=== PATIENT | female | born 1945 | race Caucasian/White ===

== ENCOUNTER 2021-07-17 17:16 | Inpatient (IN) | payer MEDICARE ==
--- NOTE | 2021-07-17 16:34 | CT ---
EXAMINATION TYPE: CT brain wo/w con DATE OF EXAM: 07/17/2021 COMPARISON: None. HISTORY: Headache Stat hold and call CT DLP: 2276.40 mGycm Automated exposure control for dose reduction was used. CONTRAST: CT scan of the head is performed without and with IV Contrast, patient injected with 100 mL of Isovue 300. FINDINGS: Noncontrast images show no acute intracranial hemorrhage or midline shift. There is mild ve ntricular and sulcal prominence. There is vague area of low attenuation involving the right parietal temporal regions. Finding consistent with age-indeterminate infarct without prior comparison. This me asures approximately 5.6 x 3.2 cm on axial image 28. Postcontrast images show no suspicious enhancing mass. The globes are intact and the visualized sinuses are clear. IMPRESSION: Age-indeterminate right parietal lobe infarct with temporal extension could be subacute i n age. Correlate clinically. Correlation with old outside CT or MRI would be beneficial. No abnormal enhancement noted.
[2021-07-17] MEDS ORDERED: SODIUM CHLORIDE 0.9% 500 ML 500 ML IV STA (17:40)
[2021-07-17 18:08] LABS: Basophils # (A) 0.1 k/uL (0-0.2); Basophils % (A) 1 %; Eosinophils # (A) 0.1 k/uL (0-0.7); Eosinophils % (A) 1 %; HCT 41.6 % (34.0-46.0); HGB 14.3 gm/dL (11.4-16.0); Lymphocytes # (A) 1.8 k/uL (1.0-4.8); Lymphocytes % (A) 22 %; MCHC 34.4 g/dL (31.0-37.0); MCV 92.9 fL (80.0-100.0); Mean Platelet Volume 8.4; Monocytes # (A) 0.4 k/uL (0-1.0); Monocytes % (A) 5 %; Neutrophils # (A) 5.6 k/uL (1.3-7.7); Neutrophils % (A) 68 %; Platelet Count 204 k/uL (150-450); RBC 4.48 m/uL (3.80-5.40); RDW 12.7 % (11.5-15.5); WBC 8.3 k/uL (3.8-10.6)
[2021-07-17 18:20] LABS: Albumin 4.3 g/dL (3.5-5.0); Calcium 9.2 mg/dL (8.4-10.2); Potassium 4.2 mmol/L (3.5-5.1); Total Bilirubin 0.6 mg/dL (0.2-1.3); Total Protein 7.5 g/dL (6.3-8.2)
[2021-07-17 18:23] LABS: INR 0.9 (<1.2); Partial Thromboplastin Time 22.4 sec (22.0-30.0); Prothrombin Time 9.6 sec (9.0-12.0)
[2021-07-17] MEDS ORDERED: amLODIPine 5 MG TAB PO STA (18:35)
--- NOTE | 2021-07-17 18:40 | ED ---
General Adult HPI - General Chief complaint: Neuro Symptoms/Deficit Stated complaint: Abnormal CT Time Seen by Provider: 07/17/21 17:39 Source: patient, RN notes reviewed, old records reviewed Mode of arrival: ambulatory Limitations: no limitations - History of Present Illness Initial comments: 76-year-old female who presented from outpatient CT with abnormal findings. Patient had gone to CT for headache and dizziness which occurred about 4 days prior and is currently resolved. CT showed subacute infarct in the right parietal and temporal lobe. No itch cranial hemorrhage. This was with and without contrast. She has no active headache currently. No numbness or weakness. No chest pain or abdominal pain. No fever. No other complaints. No history of CVA. She is not on any anticoagulation or antiplatelet medication. She is hypotensive upon arrival but has no previous diagnosis of hypertension. She has no complaints. - Related Data Allergies Allergy/AdvReac Type Severity Reaction Status Date / Time No Known Allergies Allergy Verified 07/17/21 17:37 Review of Systems ROS Statement: Those systems with pertinent positive or pertinent negative responses have been documented in the HPI. ROS Other: All systems not noted in ROS Statement are negative. Past Medical History Past Medical History: No Reported History History of Any Multi-Drug Resistant Organisms: None Reported Past Surgical History: No Surgical Hx Reported Past Psychological History: No Psychological Hx Reported Smoking Status: Never smoker Past Alcohol Use History: None Reported Past Drug Use History: None Reported General Exam Limitations: no limitations General appearance: alert, in no apparent distress Head exam: Present: atraumatic, normocephalic Eye exam: Present: normal appearance, PERRL ENT exam: Present: normal exam Neck exam: Present: normal inspection. Absent: tenderness, meningismus Respiratory exam: Present: normal lung sounds bilaterally. Absent: respiratory distress, wheezes Cardiovascular Exam: Present: regular rate, normal rhythm GI/Abdominal exam: Present: soft. Absent: distended, tenderness, guarding Extremities exam: Present: normal inspection, normal capillary refill. Absent: pedal edema Neurological exam: Present: alert, oriented X3, other (NIH of 0, no ataxia, normal finger to nose bilaterally). Absent: CN II-XII intact, motor sensory deficit Psychiatric exam: Present: normal affect, normal mood Skin exam: Present: warm, dry, intact Course Vital Signs 07/17/21 17:32 Temperature 98.5 F Pulse Rate 80 Respiratory 18 Rate Blood Pressure 209/115 O2 Sat by Pulse 97 Oximetry EKG Findings - EKG Comments: EKG Findings:: EKG: Sinus rhythm LVH, rate of 65, no ST segment elevation, AZ interval 197, QRS duration 90, QTC 410 Medical Decision Making - Medical Decision Making 76-year-old female with abnormal outpatient CT, showing subacute stroke. Patient is hypertensive in the emergency department. This is likely secondary to CVA. She has no headache. No focal findings. NIH of 0. She is given an oral antihypertensive medication as well as aspirin in the emergency department. Will allow for permissive hypertension. I had initially order CT angiography however outpatient computed tomography scan was with contrast. Will withhold CT angiography at this point due to recent contrast study. I did order an echo as well as carotid Doppler. I discussed the case with Dr. Klein, who will admit. Patient will require further stroke evaluation. - Lab Data Result diagrams: 07/17/21 18:00 07/17/21 18:00 Lab Results 07/17/21 07/17/21 07/17/21 Range/Units 15:37 18:00 18:00 WBC 8.3 (3.8-10.6) k/uL RBC 4.48 (3.80-5.40) m/uL Hgb 14.3 (11.4-16.0) gm/dL Hct 41.6 (34.0-46.0) % MCV 92.9 (80.0-100.0) fL MCH 32.0 (25.0-35.0) pg MCHC 34.4 (31.0-37.0) g/dL RDW 12.7 (11.5-15.5) % Plt Count 204 (150-450) k/uL MPV 8.4 Neutrophils % 68 % Lymphocytes % 22 % Monocytes % 5 % Eosinophils % 1 % Basophils % 1 % Neutrophils # 5.6 (1.3-7.7) k/uL Lymphocytes # 1.8 (1.0-4.8) k/uL Monocytes # 0.4 (0-1.0) k/uL Eosinophils # 0.1 (0-0.7) k/uL Basophils # 0.1 (0-0.2) k/uL PT 9.6 (9.0-12.0) sec INR 0.9 (<1.2) APTT 22.4 (22.0-30.0) sec Sodium (137-145) mmol/L Potassium (3.5-5.1) mmol/L Chloride (98-107) mmol/L Carbon Dioxide (22-30) mmol/L Anion Gap mmol/L BUN 16 (7-17) mg/dL Creatinine 0.90 (0.52-1.04) mg/dL Est GFR (CKD-EPI)AfAm 73 (>60 ml/min/1.73 sqM) Est GFR (CKD-EPI)NonAf 64 (>60 ml/min/1.73 sqM) Glucose (74-99) mg/dL Calcium (8.4-10.2) mg/dL Total Bilirubin (0.2-1.3) mg/dL AST (14-36) U/L ALT (4-34) U/L Alkaline Phosphatase (38-126) U/L Total Protein (6.3-8.2) g/dL Albumin (3.5-5.0) g/dL 07/17/21 Range/Units 18:00 WBC (3.8-10.6) k/uL RBC (3.80-5.40) m/uL Hgb (11.4-16.0) gm/dL Hct (34.0-46.0) % MCV (80.0-100.0) fL MCH (25.0-35.0) pg MCHC (31.0-37.0) g/dL RDW (11.5-15.5) % Plt Count (150-450) k/uL MPV Neutrophils % % Lymphocytes % % Monocytes % % Eosinophils % % Basophils % % Neutrophils # (1.3-7.7) k/uL Lymphocytes # (1.0-4.8) k/uL Monocytes # (0-1.0) k/uL Eosinophils # (0-0.7) k/uL Basophils # (0-0.2) k/uL PT (9.0-12.0) sec INR (<1.2) APTT (22.0-30.0) sec Sodium 137 (137-145) mmol/L Potassium 4.2 (3.5-5.1) mmol/L Chloride 103 (98-107) mmol/L Carbon Dioxide 27 (22-30) mmol/L Anion Gap 7 mmol/L BUN 14 (7-17) mg/dL Creatinine 0.88 (0.52-1.04) mg/dL Est GFR (CKD-EPI)AfAm 75 (>60 ml/min/1.73 sqM) Est GFR (CKD-EPI)NonAf 65 (>60 ml/min/1.73 sqM) Glucose 114 H (74-99) mg/dL Calcium 9.2 (8.4-10.2) mg/dL Total Bilirubin 0.6 (0.2-1.3) mg/dL AST 20 (14-36) U/L ALT 13 (4-34) U/L Alkaline Phosphatase 119 (38-126) U/L Total Protein 7.5 (6.3-8.2) g/dL Albumin 4.3 (3.5-5.0) g/dL Disposition Clinical Impression: Cerebrovascular accident (CVA), Hypertension Disposition: ADMITTED IP TO THIS [facility] Condition: Stable Is patient prescribed a controlled substance at d/c from ED?: No Referrals: Niyah Thakur MD [Primary Care Provider] - 1-2 days Decision to Admit Reason: Admit from EC Decision Date: 07/17/21 Decision Time: 18:40
[2021-07-17] MEDS: SODIUM CHLORIDE 0.9% 1,000 ML IV SCH (18:53)
[2021-07-17] MEDS: ATORVASTATIN 80 MG TAB PO SCH (18:53)
--- NOTE | 2021-07-17 18:58 | P.HPIM ---
History of Present Illness H&P Date: 07/17/21 Chief Complaint: outpatient CT finding Patient is a 76-year-old female with no significant past medical history that presents to the hospital with outpatient CT findings suggestive of a subacute infarct involving the right parietal and temporal lobe. Patient was examined at bedside with family member denies any new neurologic focal deficit. As per family patient is independent and lives by herself and did not notice any facial droop, dysarthria or any weakness in her lower upper extremity. She has however slightly unsteady when she ambulates as per daughter at bedside. Patient denies any active chest pain, shortness of breath or palpitations. Computed tomography scan showed age intermediate right parietal lobe infarct with Frakes extension could be subacute and age. Neurology will be consult as per ER. Patient's vital signs in the emergency department are as follows blood pressure 209/115, afebrile 98.5 and saturating 97% on room air. CBC and BMP reviewed unremarkable. Past Medical History Past Medical History: No Reported History History of Any Multi-Drug Resistant Organisms: None Reported Past Surgical History: No Surgical Hx Reported Past Psychological History: No Psychological Hx Reported Smoking Status: Never smoker Past Alcohol Use History: None Reported Past Drug Use History: None Reported Medications and Allergies Allergies Allergy/AdvReac Type Severity Reaction Status Date / Time No Known Allergies Allergy Verified 07/17/21 17:37 Physical Exam Vitals: Vital Signs Temp Pulse Resp BP Pulse Ox 07/17/21 17:32 98.5 F 80 18 209/115 97 Intake and Output 07/17/21 07/17/21 07/17/21 06:59 14:59 22:59 Other: Weight 70.307 kg Gen. patient is awake alert oriented 3 Cardio normal S1/S2 heard Respiratory no wheezing or rhonchi appreciated Abdomen soft and nontender Neuro: Cranial nerves II-12 grossly intact 5 out of 5 strength in the upper and lower extremity Normal sensation in the upper and lower extremity Gait was not assessed at bedside due to safety reasons. Results CBC & Chem 7: 07/17/21 18:00 07/17/21 18:00 Labs: Abnormal Lab Results - Last 24 Hours (Table) 07/17/21 Range/Units 18:00 Glucose 114 H (74-99) mg/dL Assessment and Plan Assessment: Assessment: #1 subacute stroke #2 hypertensive emergency Plan: -Admit to medicine for close monitoring -Aspiration/fall precaution -Continue with neuro checks every 4 hours -Outside the window for TPA -Neurology will be consulted -We'll obtain 2-D echocardiogram, lipid profile -Bedside swallow -EKG -PT/OT, speech eval -Continue with aspirin high-intensity statin -Blood pressure goal less than 130/80 however we will titrate slowly -DVT prophylaxis Lovenox 40 daily
[2021-07-17] MEDS ORDERED: LABETALOL 5 MG/ML VIAL MDV IVP PRN (19:00)
--- NOTE | 2021-07-17 19:27 | US ---
EXAMINATION TYPE: US carotid duplex BILAT DATE OF EXAM: 07/17/2021 COMPARISON: NONE CLINICAL HISTORY: Stenosis. EXAM MEASUREMENTS: RIGHT: Peak Systolic Velocity (PSV) cm/sec ----- Right CCA: 71.3 ----- Right ICA: 104.3 ----- Right ECA: 91.1 ICA/CCA ratio: 1.5 RIGHT: End Diastole cm/sec ----- Right CCA: 18.4 ----- Right ICA: 34.2 ----- Right ECA: 11.8 LEFT: Peak Systolic Velocity (PSV) cm/sec ----- Left CCA: 64.7 ----- Left ICA: 93.8 ----- Left ECA: 95.1 ICA/CCA ratio: 1.4 LEFT: End Diastole cm/sec ----- Left CCA: 23.0 ----- Left ICA: 36.9 ----- Left ECA: 21.0 VERTEBRALS (direction of flow): Right Vertebral: Antegrade Left Vertebral: Antegrade Rhythm: Normal Minimal plaque formation seen within the right carotid artery; moderate hard and soft plaque noted wi thin the left carotid artery bulb. IMPRESSION: Less than 50% stenosis of the carotid bifurcation bilaterally. Criteria for Assigning % of Stenosis / Diameter reduction (Estimation based on the indirect measurements of the internal carotid artery velocities (ICA PSV). 1. Normal (no stenosis)=ICA PSV < 125 cm/s: ratio < 2.0: ICA EDV<40 cm/s. 2. Less than 50% stenosis=ICA PSV < 125 cm/s: ratio < 2.0: ICA EDV<40 cm/s. 3. 50 to 69% stenosis=ICA PSV of 125 to 230 cm/s: ration 2.0 ? 4.0: ICA EDV 40-100 cm/s. 4. Greater than 70% stenosis to near occlusion= ICA PSV > 230 cm/s: ratio > 4.0: ICA EDV > 100 cm/s. 5. Near occlusion= ICA PSV velocities may be low or undetectable: variable ratio and ICA EDV. 6. Total occlusion=unable to detect flow.
[2021-07-17 21:28] LABS: T4, Free (Free Thyroxine) 0.88 ng/dL (0.78-2.19)
[2021-07-18] MEDS: SODIUM CHLORIDE 0.9% 1,000 ML IV SCH ×3 (05:54→23:16)
[2021-07-18 06:42] LABS: Basophils # (A) 0.1 k/uL (0-0.2); Basophils % (A) 1 %; Eosinophils # (A) 0.1 k/uL (0-0.7); Eosinophils % (A) 1 %; HCT 38.9 % (34.0-46.0); HGB 13.2 gm/dL (11.4-16.0); Lymphocytes # (A) 1.9 k/uL (1.0-4.8); Lymphocytes % (A) 23 %; MCH 31.6 pg (25.0-35.0); Monocytes # (A) 0.5 k/uL (0-1.0); Monocytes % (A) 5 %; Neutrophils # (A) 5.7 k/uL (1.3-7.7); Neutrophils % (A) 68 %; Platelet Count 199 k/uL (150-450); RBC 4.18 m/uL (3.80-5.40); RDW 12.2 % (11.5-15.5); WBC 8.4 k/uL (3.8-10.6)
[2021-07-18 06:50] LABS: Chol/HDL Ratio 4.13 Ratio; LDL Cholesterol,Calculated 171.8 mg/dL (0.0-131.0)
[2021-07-18 06:57] LABS: African American GFR (CKD) >90 (>60 ml/min/1.73 sqM); Anion Gap 4 mmol/L; Blood Urea Nitrogen 11 mg/dL (7-17); Calcium 8.7 mg/dL (8.4-10.2); Carbon Dioxide 26 mmol/L (22-30); Chloride 106 mmol/L (98-107); Glucose 122 mg/dL (74-99); Non-African American GFR(CKD) 81 (>60 ml/min/1.73 sqM); Potassium 4.1 mmol/L (3.5-5.1); Sodium 136 mmol/L (137-145)
[2021-07-18] MEDS: HEPARIN SODIUM,PORCINE/PF 5,000 UNIT/0.5 ML SYRINGE SQ SCH ×3 (08:59→23:15)
[2021-07-18] MEDS ORDERED: ASPIRIN 325 MG TAB PO SCH (09:00)
--- NOTE | 2021-07-18 10:41 | P.PN ---
Subjective Patient was examined at bedside not accompanying of any new symptomatology. Patient is anxious to be discharged. Pending diagnostic imaging and evaluation by neurology. Objective - Vital Signs Vital signs: Vital Signs Temp 99.3 F 07/18/21 07:47 Pulse 74 07/18/21 08:32 Resp 17 07/18/21 08:32 BP 146/80 07/18/21 07:47 Pulse Ox 94 L 07/18/21 08:01 Intake & Output 07/17/21 07/18/21 07/18/21 18:59 06:59 18:59 Weight 70.307 kg 70.307 kg Other: Voiding Method Toilet Toilet # Voids 1 1 # Bowel Movements 1 - Exam Gen. patient is awake alert oriented 3 Cardio normal S1/S2 heard Respiratory no wheezing or rhonchi appreciated Abdomen soft and nontender Neuro: Cranial nerves II-12 grossly intact 5 out of 5 strength in the upper and lower extremity Normal sensation in the upper and lower extremity Gait was not assessed at bedside due to safety reasons. - Labs CBC & Chem 7: 07/18/21 05:28 07/18/21 05:28 Labs: Abnormal Lab Results - Last 24 Hours (Table) 07/17/21 07/17/21 07/17/21 Range/Units 18:00 18:00 18:58 Sodium (137-145) mmol/L Glucose 114 H (74-99) mg/dL Hemoglobin A1c 6.7 H (0.0-6.0) % Triglycerides 210.00 H (0.00-149.00) mg/dL Cholesterol 282.00 H (0.00-200.00) mg/dL LDL Cholesterol, Calc 171.8 H (0.0-131.0) mg/dL VLDL Cholesterol, Calc 42.00 H (5.00-40.00) mg/dL HDL Cholesterol 68.20 H (40.00-60.00) mg/dL TSH 5.410 H (0.465-4.680) mIU/L 07/18/21 Range/Units 05:28 Sodium 136 L (137-145) mmol/L Glucose 122 H (74-99) mg/dL Hemoglobin A1c (0.0-6.0) % Triglycerides (0.00-149.00) mg/dL Cholesterol (0.00-200.00) mg/dL LDL Cholesterol, Calc (0.0-131.0) mg/dL VLDL Cholesterol, Calc (5.00-40.00) mg/dL HDL Cholesterol (40.00-60.00) mg/dL TSH (0.465-4.680) mIU/L Assessment and Plan Plan: Assessment: #1 subacute stroke #2 essential hypertension Plan: -Admit to medicine for close monitoring -Aspiration/fall precaution -Continue with neuro checks every 4 hours -Outside the window for TPA -Pending evaluation by neurology -Pending 2-D echocardiogram -Start low-dose of Norvasc 2.5 mg daily -PT/OT, speech eval -Continue with aspirin high-intensity statin -Blood pressure goal less than 130/80 however we will titrate slowly -DVT prophylaxis Lovenox 40 daily
--- NOTE | 2021-07-18 15:00 | ECHOF ---
Referral Reason:Thrombus MEASUREMENTS -------- HEIGHT: 170.2 cm WEIGHT: 70.3 kg BP: 129/70 RVIDd: 4.1 cm (< 3.3) IVSd: 1.7 cm (0.6 - 1.1) LVIDd: 3.4 cm (3.9 - 5.3) LVPWd: 1.5 cm (0.6 - 1.1) IVSs: 2.0 cm LVIDs: 2.6 cm LVPWs: 2.0 cm LAESV Index (A-L): 39.00 ml/m Ao Diam: 3.0 cm (2.0 - 3.7) AV Cusp: 2.1 cm (1.5 - 2.6) LA Diam: 3.3 cm (2.7 - 3.8) MV EXCURSION: 18.450 mm (> 18.000) MV EF SLOPE: 88 mm/s (70 - 150) EPSS: 0.3 cm MV E Drake: 0.75 m/s MV DecT: 214 ms MV A Drake: 0.92 m/s MV E/A Ratio: 0.82 RAP: 5.00 mmHg RVSP: 34.95 mmHg FINDINGS -------- Sinus rhythm. This was a technically adequate study. The left ventricular size is normal. There is moderate concentric left ventricular hypertrophy. O verall left ventricular systolic function is normal with, an EF between 55 - 60 %. The right ventricle is moderately enlarged. LA is moderately dilated 34-39 ml/m2 The right atrial size is normal. Interatrial and interventricular septum intact. There is no evidence of aortic regurgitation. There is no evidence of aortic stenosis. Moderate mitral regurgitation is present. [id number] tricuspid regurgitation present. There is borderline pulmonary artery hypertension . The right ventricular systolic pressure, as measured by Doppler, is 34.95mmHg. There is no pulmonic regurgitation present. The aortic root size is normal. IVC Not well visulized. There is no pericardial effusion. CONCLUSIONS -------- 1. The left ventricular size is normal. 2. There is moderate concentric left ventricular hypertrophy. 3. Overall left ventricular systolic function is normal with, an EF between 55 - 60 %. 4. The right ventricle is moderately enlarged. 5. LA is moderately dilated 34-39 ml/m2 6. Moderate mitral regurgitation is present. 7. [id number] tricuspid regurgitation present. 8. There is borderline pulmonary artery hypertension. 9. The right ventricular systolic pressure, as measured by Doppler, is 34.95mmHg. GOVERNOR [employer]SEMBLER: Jacqueline Torres RDCS
--- NOTE | 2021-07-18 16:47 | P.CNNES ---
History of Present Illness Consult date: 07/18/21 Requesting physician: John Brown Reason for Consult: CVA History of Present Illness: Patient is a 76-year-old right-handed female female came to the hospital yesterday at 5:16 PM referred from radiology department after patient had a computed tomography scan of the head outpatient showed a subacute stroke. Patient states that 3 days prior to arrival, she has been feeling lightheaded, slightly off balance but no vertigo. She felt she was coming up with the pneumonia. She saw her primary physician in [place] yesterday, who scheduled computed tomography scan of the head, which was done yesterday, showing subacute stroke as mentioned below. Patient was sent to the ER for evaluation. Patient denies any numbness tingling focal weakness slurred speech or facial droop. Denies any headache. Patient states that all her life she used to speak slowly, but nothing changed. Denies any drooling. Vital signs on arrival blood pressure 209/115, temperature 98.5, pulse rate 80 respiration 18. Saturation 97% patient's blood pressure did improve to 129/70 and 146/80 subsequently. Patient's blood test shows normal CBC PT/PTT, normal chem 20. CT head with and without contrast revealed age indeterminate right parietal lobe infarct with temporal extension could be subacute in age. Correlate clinically. Correlation with old outside CT or MRI would be beneficial. No abnormal enhancement noted. I personally reviewed computed tomography scan of the head and agree with the findings. It appears subacute stroke. Patient only takes multivitamins. Patient does not take any antiplatelet medication at home. She takes Advil sometimes. Denies diabetes, she does have hypertension. No previous history of strokes TIA. She has never smoked does not drink alcohol. Review of Systems As above in detail. All other review systems reviewed and unremarkable. No chest pain, abdominal pain nausea vomiting diarrhea. No fever or chills. Past Medical History Past Medical History: No Reported History History of Any Multi-Drug Resistant Organisms: None Reported Past Surgical History: No Surgical Hx Reported Past Psychological History: No Psychological Hx Reported Smoking Status: Never smoker Past Alcohol Use History: None Reported Past Drug Use History: None Reported Medications and Allergies Home Medications Medication Instructions Recorded Confirmed Type Multivitamins, Thera [Multivitamin 1 tab PO DAILY 07/17/21 07/17/21 History (formulary)] Allergies Allergy/AdvReac Type Severity Reaction Status Date / Time No Known Allergies Allergy Verified 07/17/21 19:35 Physical Examination - Vital Signs Vital Signs: Vital Signs Temp Pulse Pulse Resp BP BP Pulse Ox 07/18/21 08:32 74 17 07/18/21 08:01 94 L 07/18/21 07:47 99.3 F 74 17 146/80 93 L 07/18/21 03:50 98.8 F 74 16 129/70 93 L 07/18/21 00:25 146/72 07/17/21 23:43 98.6 F 68 16 180/106 95 07/17/21 23:27 80 15 156/91 98 07/17/21 22:57 68 18 166/107 95 07/17/21 21:17 64 18 172/90 95 07/17/21 19:09 68 18 188/105 98 07/17/21 18:50 200/108 07/17/21 17:32 98.5 F 80 18 209/115 97 Intake and Output 07/17/21 07/18/21 07/18/21 22:59 06:59 14:59 Other: Voiding Method Toilet Toilet # Voids 1 1 # Bowel Movements 1 Weight 70.307 kg 70.307 kg Patient is an elderly female, in no acute distress. Patient is alert awake oriented to time place and person. She knows it is July in the year is 2021 and that she is in [facility] in [place] in [facility] and name of the current president. Speech and language functions are normal. Patient can name and repeat very well. She has mild nasal tone to her voice, and some slurring, which is likely baseline. Attention, concentration and fund of knowledge is adequate. On cranial examination, pupils are round and reacting to light, visual white revealed left homonymous hemianopia, her extraocular muscles are intact with no nystagmus. Face is symmetric, tongue protrudes to the midline. Palatal elevation and sensation normal, hearing is slightly decreased and shoulder shrug normal, facial sensation normal. Patient has a fairly large size blackhead/mole over the right cheek, which is concerning for basal cell carcinoma. On muscle strength testing, there is no pronator drift and the strength is normal in arms and legs distally and proximally. Deep tendon reflexes are 1+ and symmetric and plantars downgoing. Sensory to touch is equal with no neglect. Cerebellar function showed no ataxia for yczvkh-[id number] testing. No dysdiadochokinesia. Tone and bulk of muscles normal. Gait deferred. On general examination, there is no carotid bruit or murmur, S1-S2 audible. Abdomen is soft nontender. No organomegaly. Bowel sounds present. Chest is clear. Peripheral pulses are present. No edema. Results - Laboratory Findings CBC and BMP: 07/18/21 05:28 07/18/21 05:28 Abnormal Lab Findings: Abnormal Labs 07/17/21 07/17/21 07/17/21 18:00 18:00 18:58 Sodium Glucose 114 H Hemoglobin A1c 6.7 H Triglycerides 210.00 H Cholesterol 282.00 H LDL Cholesterol, Calc 171.8 H VLDL Cholesterol, Calc 42.00 H HDL Cholesterol 68.20 H TSH 5.410 H 07/18/21 05:28 Sodium 136 L Glucose 122 H Hemoglobin A1c Triglycerides Cholesterol LDL Cholesterol, Calc VLDL Cholesterol, Calc HDL Cholesterol TSH Assessment and Plan Assessment: * Subacute ischemic stroke involving the right parietal lobe with temporal extension. * Hypertension, uncontrolled * Hyperlipidemia Plan: * Patient's stroke is likely due to multiple vascular risk factors including uncontrolled hypertension, hyperlipidemia. Patient was not taking any antiplatelet medication. * We will place patient on dual antiplatelet medication, aspirin 81 mg and Plavix 75 mg daily for 21 days, thereafter stop Plavix and continue aspirin 81 mg indefinitely. * Lipid panel with cholesterol 282, LDL 171, HDL 68.2 and triglycerides 210. Agree with starting Lipitor 80 mg daily. * Hemoglobin A1c 6.7. Need dietary modifications, healthy lifestyles and aerobic exercises, and follow-up A1c in 3-6 months. * Carotid Doppler revealed less than 50% stenosis of the carotid bifurcation. Antegrade flow in both vertebral arteries. * 2-D echo revealed normal left ventricular size. Moderate concentric LVH. EF is between 55-60%. Right ventricle is moderately enlarged. Left atrium is moderately dilated, moderate MR, mild to moderate TR. * MRI of the brain was recommended, but patient declined. She understands the risks. (MRIs also very backed up with long delays, as MRI machine was not work ing yesterday from 2 PM onwards) * Optimize control of blood pressure as per IM. Target <140/80, but avoid hypotension. * Recommend no driving, because of visual field deficits, until cleared by ophthalmology. Follow-up with ophthalmology as outpatient. * Telemetric monitoring so far showing sinus rhythm, no other arrhythmia. * Recommend follow-up with neurologist within 2-4 weeks. Thank you for the consult.
[2021-07-18] MEDS: CLOPIDOGREL 75 MG TAB PO SCH (18:08)
[2021-07-18 19:15] LABS: Chol/HDL Ratio 4.28 Ratio; LDL Cholesterol,Calculated 159.9 mg/dL (0.0-131.0)
[2021-07-18] MEDS: ATORVASTATIN 80 MG TAB PO SCH (19:40)
[2021-07-19 04:17] VITALS: RESP 16; TEMP 98.7
[2021-07-19] MEDS: HEPARIN SODIUM,PORCINE/PF 5,000 UNIT/0.5 ML SYRINGE SQ SCH (08:29)
[2021-07-19] MEDS: CLOPIDOGREL 75 MG TAB PO SCH (08:29)
[2021-07-19] MEDS: SODIUM CHLORIDE 0.9% 1,000 ML IV SCH (08:30)
[2021-07-19 08:33] VITALS: BP 165/74; PULSE 78
[2021-07-19] MEDS ORDERED: amLODIPine 2.5 MG TAB PO SCH (09:00)
[2021-07-19] MEDS ORDERED: ASPIRIN 81 MG PO SCH (09:00)
[2021-07-19] MEDS ORDERED: amLODIPine 5 MG TAB PO SCH (09:00)
--- NOTE | 2021-07-19 13:36 | P.DS ---
Providers Date of admission: 07/17/21 18:33 Attending physician: Delonte Klein MD Consults: 07/17/21 18:34 Consult Physician Routine Consulting Provider: Enid Mancia Consult Reason/Comments: CVA Do you want consulting provider notified?: Yes Primary care physician: Niyah Thakur MD Hospital Course: Patient is a 76-year-old female with no significant past medical history that presents to the hospital with outpatient CT findings suggestive of a subacute infarct involving the right parietal and temporal lobe. Patient was examined at bedside with family member denies any new neurologic focal deficit. As per family patient is independent and lives by herself and did not notice any facial droop, dysarthria or any weakness in her lower upper extremity. She has however slightly unsteady when she ambulates as per daughter at bedside. Patient denies any active chest pain, shortness of breath or palpitations. Computed tomography scan showed age intermediate right parietal lobe infarct with [place] extension could be subacute and age. Neurology will be consult as per ER. Patient's vital signs in the emergency department are as follows blood pressure 209/115, afebrile 98.5 and saturating 97% on room air. CBC and BMP reviewed unremarkable. Patient was asked to complete MRI however declined. Did echo cardiogram was completed for many shunt. Patient will be optimized on appropriate blood pressure medication currently on Norvasc which has been increased to 5 mg daily. She has been asked to follow up with primary care doctor to titrate accordingly. We have also started on aspirin and Plavix 75 mg to complete for 21 days and thereafter stopped Plavix and continue aspirin daily. Patient's hemoglobin A1c was also 6.7 we'll initiate metformin 500 mg daily and a. To follow up with neurology within 1-2 weeks of discharge. She is also instructed not to drive by neurology given visual field defects until cleared by ophthalmology. Patient Condition at Discharge: Stable Plan - Discharge Summary Discharge Rx Participant: No New Discharge Prescriptions: New Aspirin 81 mg PO DAILY 30 Days #30 Atorvastatin [Lipitor] 80 mg PO HS 30 Days #30 tab amLODIPine [Norvasc] 10 mg PO DAILY 30 Days #30 tab Clopidogrel [Plavix] 75 mg PO DAILY 21 Days #21 tab Continue Multivitamins, Thera [Multivitamin (formulary)] 1 tab PO DAILY Discharge Medication List Multivitamins, Thera [Multivitamin (formulary)] 1 tab PO DAILY 07/17/21 [History] Aspirin 81 mg PO DAILY 30 Days #30 07/19/21 [Rx] Atorvastatin [Lipitor] 80 mg PO HS 30 Days #30 tab 07/19/21 [Rx] Clopidogrel [Plavix] 75 mg PO DAILY 21 Days #21 tab 07/19/21 [Rx] amLODIPine [Norvasc] 10 mg PO DAILY 30 Days #30 tab 07/19/21 [Rx] Follow up Appointment(s)/Referral(s): [facility], [NON-STAFF] - Niyah Thakur MD [Primary Care Provider] - 1-2 days Enid Mancia MD [STAFF PHYSICIAN] - 1 Week Discharge Disposition: HOME SELF-CARE
--- NOTE | 2021-07-23 11:27 | P.PN ---
Subjective Progress Note Date: 07/19/21 Patient was seen for follow-up. Patient is sitting comfortably in the recliner. Patient denies any new focal symptoms. Patient denies any headache. Telemetric monitoring showing sinus rhythm. Objective - Vital Signs Vital signs: Vital Signs Temp 98.7 F 07/19/21 03:30 Pulse 78 07/19/21 08:00 Resp 16 07/19/21 08:00 BP 165/74 07/19/21 08:00 Pulse Ox 97 07/19/21 08:00 Intake & Output 07/18/21 07/19/21 07/19/21 18:59 06:59 18:59 Intake Total 360 120 Output Total 0 Balance 360 120 Intake: Oral 360 120 Output: Urine 0 Stool 0 Urine/Stool Mix 0 Emesis 0 Other: Voiding Method Toilet Toilet Toilet # Voids 1 1 1 # Bowel Movements 1 1 - Exam Patient's examination is normal except for left homonymous hemianopia. Rest of the examination nonfocal. 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 * Hyperlipidemia Plan: * Patient's stroke is likely due to multiple vascular risk factors including uncontrolled hypertension, hyperlipidemia. Patient was not taking any antiplatelet medication. * Continue dual antiplatelet medication, aspirin 81 mg and Plavix 75 mg daily for 21 days, thereafter stop Plavix and continue aspirin 81 mg indefinitely. * Lipid panel with cholesterol 282, LDL 171, HDL 68.2 and triglycerides 210. Agree with starting Lipitor 80 mg daily. * Hemoglobin A1c 6.7. Need dietary modifications, healthy lifestyles and aerobic exercises, and follow-up A1c in 3-6 months. * Carotid Doppler revealed less than 50% stenosis of the carotid bifurcation. Antegrade flow in both vertebral arteries. * 2-D echo revealed normal left ventricular size. Moderate concentric LVH. EF is between 55-60%. Right ventricle is moderately enlarged. Left atrium is moderately dilated, moderate MR, mild to moderate TR. * MRI of the brain was recommended, but patient declined. * Optimize control of blood pressure as per IM. Target <140/80, but avoid hypotension. * Recommend no driving, because of visual field deficits, until cleared by ophthalmology. Follow-up with ophthalmology as outpatient. * Patient recommended to follow up with with a clockmaker regarding right cheek mole. * Telemetric monitoring so far showing sinus rhythm, no other arrhythmia. * Recommend follow-up with neurologist within 2-4 weeks.
== END 2021-07-19 16:24 | disposition home or self-care (01) | DRG 65 ==
LOC: EC 17:16 → 3SCARD 18:33
PROVIDERS: ADMIT Internal Medicine; ATTEND Internal Medicine
DX: I63.9 Cerebral infarction, unspecified (principal); I16.1 Hypertensive emergency; I10 Essential (primary) hypertension; I08.1 Rheumatic disorders of both mitral and tricuspid valves; R29.810 Facial weakness; H53.40 Unspecified visual field defects; E78.5 Hyperlipidemia, unspecified; R29.700 NIHSS score 0; Z79.82 Long term (current) use of aspirin; R73.9 Hyperglycemia, unspecified; Z79.899 Other long term (current) drug therapy; Z60.2 Problems related to living alone; Z20.822 Contact with and (suspected) exposure to COVID-19; R73.09 Other abnormal glucose
CPT/HCPCS: 36415; 70470; 80048; 80053; 80061; 82565; 83036; 84439; 84443; 84520; 85025; 85610; 85730; 87635; 93005; 93306; 93880; 94760; 99285

== ENCOUNTER 2022-02-15 12:47 | Emergency (ER) | payer MEDICARE ==
[2022-02-15 15:01] LABS: Basophils # (A) 0.1 k/uL (0-0.2); Basophils % (A) 1 %; Eosinophils # (A) 0.1 k/uL (0-0.7); Eosinophils % (A) 2 %; HCT 41.3 % (34.0-46.0); HGB 13.9 gm/dL (11.4-16.0); Lymphocytes # (A) 1.8 k/uL (1.0-4.8); Lymphocytes % (A) 21 %; MCH 31.4 pg (25.0-35.0); MCHC 33.5 g/dL (31.0-37.0); MCV 93.6 fL (80.0-100.0); Mean Platelet Volume 8.5; Monocytes # (A) 0.4 k/uL (0-1.0); Monocytes % (A) 5 %; Neutrophils # (A) 6.2 k/uL (1.3-7.7); Neutrophils % (A) 70 %; Platelet Count 242 k/uL (150-450); RBC 4.41 m/uL (3.80-5.40); RDW 13.3 % (11.5-15.5); WBC 8.9 k/uL (3.8-10.6)
[2022-02-15 15:09] LABS: INR 0.9 (<1.2); Partial Thromboplastin Time 23.2 sec (22.0-30.0); Prothrombin Time 9.6 sec (9.0-12.0)
[2022-02-15 15:12] LABS: Albumin 4.8 g/dL (3.5-5.0); Calcium 9.8 mg/dL (8.4-10.2); Potassium 3.9 mmol/L (3.5-5.1); Total Bilirubin 0.6 mg/dL (0.2-1.3)
--- NOTE | 2022-02-15 15:34 | ED ---
General Adult HPI - General Chief complaint: Recheck/Abnormal Lab/Rx Stated complaint: blood work off dr sent to er labs Time Seen by Provider: 02/15/22 15:20 Source: patient Mode of arrival: ambulatory Limitations: no limitations - History of Present Illness Initial comments: Dictation was produced using [employer] dictation software. please excuse any grammatical, word or spelling errors. Chief Complaint: 76-year-old female past medical history of hypertension presents to the emergency department for abnormal outpatient lab History of Present Illness: Patient is a 76-year-old female she was seen by a medical provider yesterday at the clinic. She was therefore a routine visit. She has no complaints. She had no complaints during that visit. She had routine labs drawn at the office yesterday. Family members received a call told son at the bedside that patient should go to the emergency department for some sort of abnormality. Some of the bedside not sure what the abnormality was. Patient has a complaint at this time. She is feeling at baseline. The ROS documented in this emergency department record has been reviewed and confirmed by me. Those systems with pertinent positive or negative responses have been documented in the HPI. All other systems are other negative and/or noncontributory. PHYSICAL EXAM: General Impression: Alert and oriented x3, not in acute distress HEENT: Normocephalic atraumatic, extra-ocular movements intact, pupils equal and reactive to light bilaterally, mucous membranes moist. Cardiovascular: Heart regular rate and rhythm Chest: Able to complete full sentences, no retractions, no tachypnea Abdomen: abdomen soft, non-tender, non-distended, no organomegaly Musculoskeletal: Pulses present and equal in all extremities, no peripheral edema Motor: no focal deficits noted Neurological: CN II-XII grossly intact, no focal motor or sensory deficits noted Skin: Intact with no visualized rashes Psych: Normal affect and mood ED course: 76-year-old female presents with unknown abnormal outpatient lab. Our electronic medical record does not show any labs drawn recently. Vital s igns upon arrival are within acceptable limits. Patient has no complaints she is well-appearing at the bedside. Physical examination is unremarkable. Blood work is unremarkable. CBC metabolic panel and electrolytes are negative. Troponin is negative. We did speak with primary care physician's office. They did look a patient's labs that she had a proBNP 1191. They told her to come to the ER for concerns of heart failure. Patient also likely has new-onset diabetes. Patient observed in the emergency department for approximately 3 hours. Patient not having any shortness of breath whatsoever. Patient denies ever having had any shortness of breath recently. Patient does not have any clinically significant heart failure. Patient be discharged and advised follow-up with primary care doctor. - Related Data Home Medications Medication Instructions Recorded Confirmed Multivitamins, Thera [Multivitamin 1 tab PO DAILY 07/17/21 07/17/21 (formulary)] Previous Rx's Medication Instructions Recorded Aspirin 81 mg PO DAILY 30 Days #30 07/19/21 Atorvastatin [Lipitor] 80 mg PO HS 30 Days #30 tab 07/19/21 Clopidogrel [Plavix] 75 mg PO DAILY 21 Days #21 tab 07/19/21 amLODIPine [Norvasc] 10 mg PO DAILY 30 Days #30 tab 07/19/21 Allergies Allergy/AdvReac Type Severity Reaction Status Date / Time No Known Allergies Allergy Verified 02/15/22 13:11 Review of Systems ROS Statement: Those systems with pertinent positive or pertinent negative responses have been documented in the HPI. ROS Other: All systems not noted in ROS Statement are negative. Past Medical History Past Medical History: Hypertension History of Any Multi-Drug Resistant Organisms: None Reported Past Surgical History: No Surgical Hx Reported Past Psychological History: No Psychological Hx Reported Smoking Status: Never smoker Past Alcohol Use History: None Reported Past Drug Use History: None Reported General Exam Limitations: no limitations Course Vital Signs 02/15/22 13:09 Temperature 98.5 F Pulse Rate 115 H Respiratory 20 Rate Blood Pressure 130/69 O2 Sat by Pulse 96 Oximetry Medical Decision Making - Lab Data Result diagrams: 02/15/22 14:28 02/15/22 14:28 Lab Results 02/15/22 02/15/22 02/15/22 Range/Units 14:28 14:28 14:28 WBC 8.9 (3.8-10.6) k/uL RBC 4.41 (3.80-5.40) m/uL Hgb 13.9 (11.4-16.0) gm/dL Hct 41.3 (34.0-46.0) % MCV 93.6 (80.0-100.0) fL MCH 31.4 (25.0-35.0) pg MCHC 33.5 (31.0-37.0) g/dL RDW 13.3 (11.5-15.5) % Plt Count 242 (150-450) k/uL MPV 8.5 Neutrophils % 70 % Lymphocytes % 21 % Monocytes % 5 % Eosinophils % 2 % Basophils % 1 % Neutrophils # 6.2 (1.3-7.7) k/uL Lymphocytes # 1.8 (1.0-4.8) k/uL Monocytes # 0.4 (0-1.0) k/uL Eosinophils # 0.1 (0-0.7) k/uL Basophils # 0.1 (0-0.2) k/uL PT 9.6 (9.0-12.0) sec INR 0.9 (<1.2) APTT 23.2 (22.0-30.0) sec Sodium 141 (137-145) mmol/L Potassium 3.9 (3.5-5.1) mmol/L Chloride 102 (98-107) mmol/L Carbon Dioxide 26 (22-30) mmol/L Anion Gap 13 mmol/L BUN 17 (7-17) mg/dL Creatinine 0.85 (0.52-1.04) mg/dL Est GFR (CKD-EPI)AfAm 78 (>60 ml/min/1.73 sqM) Est GFR (CKD-EPI)NonAf 68 (>60 ml/min/1.73 sqM) Glucose 122 H (74-99) mg/dL Calcium 9.8 (8.4-10.2) mg/dL Total Bilirubin 0.6 (0.2-1.3) mg/dL AST 28 (14-36) U/L ALT 22 (4-34) U/L Alkaline Phosphatase 165 H (38-126) U/L Troponin I (0.000-0.034) ng/mL Total Protein 8.0 (6.3-8.2) g/dL Albumin 4.8 (3.5-5.0) g/dL 02/15/22 Range/Units 14:28 WBC (3.8-10.6) k/uL RBC (3.80-5.40) m/uL Hgb (11.4-16.0) gm/dL Hct (34.0-46.0) % MCV (80.0-100.0) fL MCH (25.0-35.0) pg MCHC (31.0-37.0) g/dL RDW (11.5-15.5) % Plt Count (150-450) k/uL MPV Neutrophils % % Lymphocytes % % Monocytes % % Eosinophils % % Basophils % % Neutrophils # (1.3-7.7) k/uL Lymphocytes # (1.0-4.8) k/uL Monocytes # (0-1.0) k/uL Eosinophils # (0-0.7) k/uL Basophils # (0-0.2) k/uL PT (9.0-12.0) sec INR (<1.2) APTT (22.0-30.0) sec Sodium (137-145) mmol/L Potassium (3.5-5.1) mmol/L Chloride (98-107) mmol/L Carbon Dioxide (22-30) mmol/L Anion Gap mmol/L BUN (7-17) mg/dL Creatinine (0.52-1.04) mg/dL Est GFR (CKD-EPI)AfAm (>60 ml/min/1.73 sqM) Est GFR (CKD-EPI)NonAf (>60 ml/min/1.73 sqM) Glucose (74-99) mg/dL Calcium (8.4-10.2) mg/dL Total Bilirubin (0.2-1.3) mg/dL AST (14-36) U/L ALT (4-34) U/L Alkaline Phosphatase (38-126) U/L Troponin I <0.012 (0.000-0.034) ng/mL Total Protein (6.3-8.2) g/dL Albumin (3.5-5.0) g/dL Disposition Clinical Impression: Abnormal laboratory test Disposition: HOME SELF-CARE Condition: Good Is patient prescribed a controlled substance at d/c from ED?: No Referrals: Jose Hammer MD [Primary Care Provider] - 1-2 days Time of Disposition: 15:50
[2022-02-15 16:11] VITALS: BP 132/70; PULSE 90; RESP 18; TEMP 98.2
== END 2022-02-15 16:10 | disposition home or self-care (01) ==
LOC: EC 12:47
DX: R79.89 Other specified abnormal findings of blood chemistry (principal); I10 Essential (primary) hypertension
CPT/HCPCS: 36415; 80053; 84484; 85025; 85610; 85730; 99283

== ENCOUNTER 2024-09-23 15:31 | Inpatient (IN) | payer MEDICARE ==
[2024-09-23] MEDS ORDERED: HEPARIN SODIUM 1,000 UN/ML (10ML VL) IV PRN (16:07)
--- NOTE | 2024-09-23 16:11 | ED ---
General Adult HPI - General Chief complaint: Chest Pain Stated complaint: cardiac issue Time Seen by Provider: 09/23/24 15:40 Source: patient, family Mode of arrival: ambulatory Limitations: no limitations - History of Present Illness Initial comments: Dictation was produced using [email or web address] dictation software. please excuse any grammatical, word or spelling errors. Chief Complaint: 79-year-old female sent in from primary care physician's office for new onset A-fib History of Present Illness: Patient 79-year-old female she went for her 6-month follow-up visit. She was found to be in A-fib. Patient denies any complaints states that she was instructed come to the hospital to be admitted with cardiology consultation and further care. The ROS documented in this emergency department record has been reviewed and confirmed by me. Those systems with pertinent positive or negative responses have been documented in the HPI. All other systems are other negative and/or noncontributory. - Related Data Home Medications Medication Instructions Recorded Confirmed Alendronate Sodium [Fosamax] 70 mg PO FR 09/23/24 09/23/24 Multivit-Min/Iron/Folic/Lutein 1 tab PO DAILY 09/23/24 09/23/24 [Centrum Silver Women Tablet] metFORMIN HCL 500 mg PO BID 09/23/24 09/23/24 Previous Rx's Medication Instructions Recorded Aspirin 81 mg PO DAILY 30 Days #30 07/19/21 Atorvastatin [Lipitor] 80 mg PO HS 30 Days #30 tab 07/19/21 amLODIPine [Norvasc] 10 mg PO DAILY 30 Days #30 tab 07/19/21 Allergies Allergy/AdvReac Type Severity Reaction Status Date / Time No Known Allergies Allergy Verified 09/23/24 16:15 Review of Systems ROS Statement: Those systems with pertinent positive or pertinent negative responses have been documented in the HPI. ROS Other: All systems not noted in ROS Statement are negative. Past Medical History Past Medical History: Hypertension History of Any Multi-Drug Resistant Organisms: None Reported Past Surgical History: No Surgical Hx Reported Past Psychological History: No Psychological Hx Reported Smoking Status: Never smoker Past Alcohol Use History: None Reported Past Drug Use History: None Reported General Exam - General Exam Comments Initial Comments: PHYSICAL EXAM: General Impression: Alert and oriented x3, not in acute distress HEENT: Normocephalic atraumatic, extra-ocular movements intact, pupils equal and reactive to light bilaterally, mucous membranes moist. Cardiovascular: Irregularly irregular Chest: Able to complete full sentences, no retractions, no tachypnea Abdomen: abdomen soft, non-tender, non-distended, no organomegaly Musculoskeletal: Pulses present and equal in all extremities, no peripheral edema Motor: no focal deficits noted Neurological: CN II-XII grossly intact, no focal motor or sensory deficits noted Skin: Intact with no visualized rashes Psych: Normal affect and mood Limitations: no limitations Course Vital Signs 09/23/24 09/23/24 15:32 15:49 Temperature 97.9 F Pulse Rate 121 H 98 Respiratory 19 18 Rate Blood Pressure 126/86 O2 Sat by Pulse 97 Oximetry EKG Findings - EKG Comments: EKG Findings:: My EKG interpretation: Ventricular rate 112, A-fib with RVR, QRS 90, QTc 376. No QTC prolongation, no ST or T-wave changes noted. Medical Decision Making - Medical Decision Making Was pt. sent in by a medical professional or institution (, PA, [employer], urgent care, hospital, or correction...) When possible be specific @ -Sent in by "Dr. De Oliveira" from the clinic Did you speak to anyone other than the patient for history (EMS, parent, family, police, friend...)? What history was obtained from this source @ -No Did you review nursing and triage notes (agree or disagree)? Why? @ -I reviewed and agree with nursing and triage notes Were old charts reviewed (outside hosp., previous admission, EMS record, old EKG, old radiological studies, urgent care reports/EKG's, correction records)? Report findings @ -No old charts were reviewed Differential Diagnosis (chest pain, altered mental status, abdominal pain women, abdominal pain men, vaginal bleeding, musculoskeletal, weakness, fever, dyspnea, syncope, headache, dizziness, GI bleed, back pain, seizure, CVA, palpatations, mental health)? @ - Differential Palpitations: Ventricular arrhythmias, atrial arrhythmias, myocardial infarction, anemia, thyrotoxicosis, electrolyte imbalance, hypokalemia, pulmonary embolism, pulmonary disease, drugs, alcohol, anxiety, stress.... This is not meant to be an all-inclusive list. EKG interpreted by me (3pts min.). @ -See above X-rays interpreted by me (1pt min.). @ -Chest x-ray is nonacute CT interpreted by me (1pt min.). @ -None done U/S interpreted by me (1pt. min.). @ -None done What testing was considered but not performed or refused? (CT, X-rays, U/S, labs)? Why? @ -None What meds were considered but not given or refused? Why? @ -None Was smoking cessation discussed for >3mins.? @ -No Were there social determinants of health that impacted care today? How? (Homelessness, low income, unemployed, alcoholism, drug addiction, transportation, low edu. Level, literacy, decrease access to med. care, group home, rehab)? @ -No Was there de-escalation of care discussed even if they declined (Discuss DNR or withdrawal of care, Hospice)? DNR status @ -No What co-morbidities impacted this encounter? (DM, HTN, Smoking, COPD, CAD, Cancer, CVA, ARF, Chemo, Hep., AIDS, mental health diagnosis, sleep apnea, morbid obesity)? @ -None Was patient admitted / discharged? Hospital course, mention meds given and route, prescriptions, significant lab abnormalities, going to OR and other pertinent info. @ -79-year-old female presents with new onset A-fib. Patient had slight RVR started on Cardizem. Patient started heparin. Patient otherwise well-appearing no acute distress. Labs are within acceptable limits. Patient be admitted cardiology consultation. Case discussed with hospitalist for admission Did you discuss the management of the patient with other professionals (professionals i.e. , PA, [employer], lab, RT, psych nurse, social service worker, plate washer, teacher, purchasing officer, bilingual patient support caseworker)? Give summary @ -No Was critical care preformed (if so, how long)? @ -Yes, 33 minutes for management of rapid ventricular rate Undiagnosed new problem with uncertain prognosis? @ -No Drug Therapy requiring intensive monitoring for toxicity (Heparin, Nitro, Insulin, Cardizem)? @ -No Were any procedures done? @ -No Diagnosis/symptom? Acute, or Chronic, or Acute on Chronic? Uncomplicated (wit hout systemic symptoms) or Complicated (systemic symptoms)? @ -New onset A-fib Side effects of treatment? @ -No Exacerbation, Progression, or Severe Exacerbation? @ -No Poses a threat to life or bodily function? How? (Chest pain, [place], [place], pneumonia, PE, COPD, DKA, ARF, appy, cholecystitis, CVA, Diverticulitis, Homicidal, Suicidal, threat to staff... and all critical care pts) @ -yes - Lab Data Result diagrams: 09/23/24 16:06 09/23/24 16:06 Lab Results 09/23/24 09/23/24 09/23/24 Range/Units 16:06 16:06 16:06 WBC 7.96 (4.50-10.00) 10*3/uL RBC 4.60 (4.10-5.20) 10*6/uL Hgb 14.6 (12.0-15.0) g/dL Hct 42.7 (37.2-46.3) % MCV 92.8 (80.0-97.0) fL MCH 31.7 (27.0-32.0) pg MCHC 34.2 (32.0-37.0) g/dL Plt Count 196 (140-440) 10*3/uL MPV 10.8 (9.5-12.2) fL Immature Gran % (Auto) 0.1 % Neutrophils % 64.8 % Lymphocytes % 25.6 % Monocytes % 7.8 % Eosinophils % 0.9 % Basophils % 0.8 % Immature Gran # 0.01 (0.00-0.04) 10*3/uL Neutrophils # 5.16 (1.80-7.70) 10*3/uL Lymphocytes # 2.04 (0.90-5.00) 10*3/uL Monocytes # 0.62 (0.20-1.00) 10*3/uL Eosinophils # 0.07 (0.04-0.35) 10*3/uL Basophils # 0.06 (0.00-0.10) 10*3/uL PT 9.9 L (10.0-12.5) sec INR 0.9 (<1.2) APTT 22.6 (22.0-30.0) sec Sodium 139 (137-145) mmol/L Potassium 4.2 (3.5-5.1) mmol/L Chloride 101 (98-107) mmol/L Carbon Dioxide 25 (22-30) mmol/L Anion Gap 13 mmol/L BUN 18 H (7-17) mg/dL Creatinine 0.70 (0.52-1.04) mg/dL Est GFR (CKD-EPI)AfAm >90 (>60 ml/min/1.73 sqM) Est GFR (CKD-EPI)NonAf 84 (>60 ml/min/1.73 sqM) Glucose 122 H (74-99) mg/dL Calcium 9.9 (8.4-10.2) mg/dL Magnesium 1.7 (1.6-2.3) mg/dL Total Bilirubin 0.9 (0.2-1.3) mg/dL AST 29 (14-36) U/L ALT 29 (4-34) U/L Alkaline Phosphatase 128 H (38-126) U/L Troponin I (0.000-0.034) ng/mL Total Protein 8.1 (6.3-8.2) g/dL Albumin 4.7 (3.5-5.0) g/dL 09/23/24 Range/Units 16:06 WBC (4.50-10.00) 10*3/uL RBC (4.10-5.20) 10*6/uL Hgb (12.0-15.0) g/dL Hct (37.2-46.3) % MCV (80.0-97.0) fL MCH (27.0-32.0) pg MCHC (32.0-37.0) g/dL Plt Count (140-440) 10*3/uL MPV (9.5-12.2) fL Immature Gran % (Auto) % Neutrophils % % Lymphocytes % % Monocytes % % Eosinophils % % Basophils % % Immature Gran # (0.00-0.04) 10*3/uL Neutrophils # (1.80-7.70) 10*3/uL Lymphocytes # (0.90-5.00) 10*3/uL Monocytes # (0.20-1.00) 10*3/uL Eosinophils # (0.04-0.35) 10*3/uL Basophils # (0.00-0.10) 10*3/uL PT (10.0-12.5) sec INR (<1.2) APTT (22.0-30.0) sec Sodium (137-145) mmol/L Potassium (3.5-5.1) mmol/L Chloride (98-107) mmol/L Carbon Dioxide (22-30) mmol/L Anion Gap mmol/L BUN (7-17) mg/dL Creatinine (0.52-1.04) mg/dL Est GFR (CKD-EPI)AfAm (>60 ml/min/1.73 sqM) Est GFR (CKD-EPI)NonAf (>60 ml/min/1.73 sqM) Glucose (74-99) mg/dL Calcium (8.4-10.2) mg/dL Magnesium (1.6-2.3) mg/dL Total Bilirubin (0.2-1.3) mg/dL AST (14-36) U/L ALT (4-34) U/L Alkaline Phosphatase (38-126) U/L Troponin I <0.012 (0.000-0.034) ng/mL Total Protein (6.3-8.2) g/dL Albumin (3.5-5.0) g/dL Disposition Clinical Impression: New onset a-fib Disposition: ADMITTED IP TO THIS [facility] Condition: Fair Referrals: None,Stated [REFERRING] - 1-2 days Decision Time: 17:29
[2024-09-23 16:14] LABS: Basophils # (A) 0.06 10*3/uL (0.00-0.10); Basophils % (A) 0.8 %; Eosinophils # (A) 0.07 10*3/uL (0.04-0.35); Eosinophils % (A) 0.9 %; HCT 42.7 % (37.2-46.3); HGB 14.6 g/dL (12.0-15.0); Lymphocytes # (A) 2.04 10*3/uL (0.90-5.00); Lymphocytes % (A) 25.6 %; MCH 31.7 pg (27.0-32.0); MCHC 34.2 g/dL (32.0-37.0); MCV 92.8 fL (80.0-97.0); Mean Platelet Volume 10.8 fL (9.5-12.2); Monocytes # (A) 0.62 10*3/uL (0.20-1.00); Monocytes % (A) 7.8 %; Neutrophils # (A) 5.16 10*3/uL (1.80-7.70); Neutrophils % (A) 64.8 %; Platelet Count 196 10*3/uL (140-440); RDW 12.8 % (11.5-14.5); WBC 7.96 10*3/uL (4.50-10.00)
[2024-09-23 16:27] LABS: ALT 29 U/L (4-34); AST 29 U/L (14-36); African American GFR (CKD) >90 (>60 ml/min/1.73 sqM); Albumin 4.7 g/dL (3.5-5.0); Alkaline Phosphatase 128 U/L (38-126); Anion Gap 13 mmol/L; Blood Urea Nitrogen 18 mg/dL (7-17); Calcium 9.9 mg/dL (8.4-10.2); Carbon Dioxide 25 mmol/L (22-30); Chloride 101 mmol/L (98-107); Glucose 122 mg/dL (74-99); Magnesium 1.7 mg/dL (1.6-2.3); Non-African American GFR(CKD) 84 (>60 ml/min/1.73 sqM); Potassium 4.2 mmol/L (3.5-5.1); Sodium 139 mmol/L (137-145); Total Bilirubin 0.9 mg/dL (0.2-1.3); Total Protein 8.1 g/dL (6.3-8.2)
[2024-09-23] MEDS: HEPARIN SODIUM 1,000 UN/ML (10ML VL) IV ONE (16:34)
[2024-09-23] MEDS: HEPARIN SOD,PORK IN 0.45% NACL 25,000 UNIT in 0.45% NACL 1 250ML.BAG IV SCH (16:34)
[2024-09-23 16:38] LABS: INR 0.9 (<1.2); Partial Thromboplastin Time 22.6 sec (22.0-30.0); Prothrombin Time 9.9 sec (10.0-12.5)
[2024-09-23] MEDS: DILTIAZEM 125 MG in SODIUM CHLORIDE 0.9% 100 ML IV SCH (16:51)
--- NOTE | 2024-09-23 17:22 | XR ---
EXAMINATION TYPE: XR chest 2V DATE OF EXAM: 09/23/2024 5:09 PM COMPARISON: None. CLINICAL INDICATION: Female, 79 years old with history of dysrhythmia; [facility] TECHNIQUE: XR chest 2V Frontal and lateral views of the chest. FINDINGS: Lungs/Pleura: There is no evidence of pleural effusion, focal consolidation, or pneumothorax. Pulmonary vascularity: Unremarkable. Heart/mediastinum: Cardiomegaly. Musculoskeletal: No acute osseous pathology. Other findings: None IMPRESSION: No acute cardiopulmonary disease/process. [facility], , 09/23/2024 5:19 PM
[2024-09-23] MEDS ORDERED: NALOXONE 0.4 MG/ML 1 ML VIAL IV PRN (17:23)
[2024-09-23] MEDS: SODIUM CHLORIDE 0.9% 1,000 ML IV SCH (18:27)
[2024-09-23] MEDS ORDERED: DEXTROSE 50% SYRINGE 50 ML IVP PRN ×2 (19:48)
[2024-09-23 20:40] LABS: Glucose,Whole Blood 100 mg/dL (70-110)
[2024-09-23] MEDS: INSULIN LISPRO (HumaLOG) 100 UNIT/ML 10 mL VL SQ SCH (21:39)
[2024-09-24] MEDS: MAGNESIUM SULFATE-D5W PMX 1 GM in DEXTROSE/WATER 1 100ML.BAG IVPB ONE (00:59)
[2024-09-24 05:52] LABS: Glucose,Whole Blood 98 mg/dL (70-110)
[2024-09-24] MEDS: PANTOPRAZOLE 40 MG TABLET PO SCH (06:27)
[2024-09-24 06:44] LABS: HCT 37.3 % (37.2-46.3); HGB 12.8 g/dL (12.0-15.0); MCH 31.8 pg (27.0-32.0); MCHC 34.3 g/dL (32.0-37.0); MCV 92.6 fL (80.0-97.0); Mean Platelet Volume 11.4 fL (9.5-12.2); Platelet Count 174 10*3/uL (140-440); RBC 4.03 10*6/uL (4.10-5.20); RDW 12.5 % (11.5-14.5); WBC 7.43 10*3/uL (4.50-10.00)
[2024-09-24] MEDS: amLODIPine 10 MG TAB PO SCH (08:07)
[2024-09-24] MEDS: ALENDRONATE 70 MG PO SCH (08:07)
[2024-09-24] MEDS: ASPIRIN 81 MG PO SCH (08:08)
[2024-09-24 08:10] LABS: Sodium 137 mmol/L (137-145)
[2024-09-24 10:20] LABS: African American GFR (CKD) >90 (>60 ml/min/1.73 sqM); Anion Gap 2 mmol/L; Blood Urea Nitrogen 14 mg/dL (7-17); Carbon Dioxide 29 mmol/L (22-30); Chloride 106 mmol/L (98-107); Glucose 99 mg/dL (74-99); Magnesium 2.1 mg/dL (1.6-2.3); Non-African American GFR(CKD) 86 (>60 ml/min/1.73 sqM)
[2024-09-24 10:36] LABS: T4, Free (Free Thyroxine) 1.29 ng/dL (0.78-2.19)
[2024-09-24 11:22] LABS: Glucose,Whole Blood 111 mg/dL (70-110)
--- NOTE | 2024-09-24 11:52 | P.PN ---
Subjective Progress Note Date: 09/24/24 79 year old M with PMH of osteoporosis, HTN, DM, HLD presents to the ED from her PCP office for new onset A-Fib. She denies any complaints. In the ED she underwent extensive evaluation. BP 121/86, HR 121, RR 19, T 97.9F, 97% on RA. CBC, Coag panel, CMP significant for PT 9.9, APTT 44.5, BUN 18, glu 122, alk phos 128. Mag 1.7. Trop < 0.012. TSH 5.49, FT4 1.29. EKG AFib with RVR rate of 112. CXR no acute process. Started on Cardizem and Heparin drip and admitted for Cardiology evaluation. 09/24 Patient was seen and examined. No complaints. Maintained on Cardizem drip at 5 mg/hr. Heparin drip at 12 units/kg/hr. CBC and BMP significant for RBC 4.03, glu 111. APTT 43.7. General: toxic, no distress, appears older than stated age Derm: warm, dry Head: atraumatic, normocephalic, symmetric Mouth: no lip lesion, mucus membranes moist Cardiovascular: good distal perfusion in all 4 extremities Lungs: breathing comfortably, no accessory muscle use Ext: no gross muscle atrophy, no edema, no contractures Neuro: No focal neurologic deficits. Psych: Alert and oriented. Based on my assessment of this patient, this patient meets a high complexity level of care. New onset A-Fib RVR: Cardizem drip at 5 mg/hr. Heparin drip at 12 units/kg/hr. Maintain K > 4 and Mg > 2. Telemetry monitoring. Echo pending. Cardiology consulted. Subclinical hypothyroidism: Repeat TSH and FT4 in 6 weeks. Osteoporosis: Alendronate 70 mg PO QFr. HTN: Amlodipine 10 mg PO QD. Cardizem drip as above. DM: A1c 6.1. ISS + Accuchecks ACHS along with hypoglycemic precautions. HLD: Lipitor 80 mg PO QHS. CODE STATUS: FULL CODE. DVT Prophylaxis: Heparin drip. GI Prophylaxis: Protonix PO Designated medical POA if patient is not able to make medical decisions for themselves: I have reviewed the following recruiting and selection consultant notes: I have reviewed the results of the following tests: CBC, BMP. I have ordered the following tests: I have discussed the care of this patient with the following independent historian: Family at bedside. RN. I have independently interpreted the following test below: I have discussed the management of this patient with the following physician: Objective - Vital Signs Vital signs: Vital Signs Temp 98.1 F 09/24/24 07:40 Pulse 68 09/24/24 07:40 Resp 16 09/24/24 07:40 BP 117/73 09/24/24 07:40 Pulse Ox 98 09/24/24 07:40 FiO2 Intake & Output 09/23/24 09/24/24 09/24/24 18:59 06:59 18:59 Intake Total 120 Balance 120 Weight 72.121 kg 72.1 kg Intake: Oral 120 Other: Voiding Method Toilet # Voids 1 1 - Labs CBC & Chem 7: 09/24/24 06:08 09/24/24 06:08 Labs: Abnormal Lab Results - Last 24 Hours (Table) 09/23/24 09/23/24 09/23/24 Range/Units 16:06 16:06 22:11 RBC (4.10-5.20) 10*6/uL PT 9.9 L (10.0-12.5) sec APTT 44.5 H (22.0-30.0) sec BUN 18 H (7-17) mg/dL Glucose 122 H (74-99) mg/dL POC Glucose (mg/dL) (70-110) mg/dL Hemoglobin A1c (<=6.0) % Alkaline Phosphatase 128 H (38-126) U/L TSH (0.465-4.680) mIU/L 09/24/24 09/24/24 09/24/24 Range/Units 06:08 06:08 06:08 RBC 4.03 L (4.10-5.20) 10*6/uL PT (10.0-12.5) sec APTT (22.0-30.0) sec BUN (7-17) mg/dL Glucose (74-99) mg/dL POC Glucose (mg/dL) (70-110) mg/dL Hemoglobin A1c 6.1 H (<=6.0) % Alkaline Phosphatase (38-126) U/L TSH 5.490 H (0.465-4.680) mIU/L 09/24/24 09/24/24 Range/Units 06:08 11:20 RBC (4.10-5.20) 10*6/uL PT (10.0-12.5) sec APTT 43.7 H (22.0-30.0) sec BUN (7-17) mg/dL Glucose (74-99) mg/dL POC Glucose (mg/dL) 111 H (70-110) mg/dL Hemoglobin A1c (<=6.0) % Alkaline Phosphatase (38-126) U/L TSH (0.465-4.680) mIU/L
--- NOTE | 2024-09-24 12:51 | P.CRDCN ---
History of Present Illness History of present illness: HISTORY OF PRESENTING ILLNESS This is a pleasant 79-year-old with past medical history significant for hypertension, hyperlipidemia, borderline diabetes mellitus type 2, new onset of atrial fibrillation, prior stroke. 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 She states she was at her doctor's office and noted to have a irregular heart rate and then EKG performed showing A-fib with RVR. Patient therefore recommended to go to emergency department. She denies any new symptoms, no ches t pain or pressure, minimal dyspnea which has been fairly chronic. No significant change in fatigue. Heart rates in the 110 range and therefore was started on Cardizem drip at 5 mg. Currently denies any lightheadedness or dizziness. Echocardiogram preliminary report shows EF 50%. She did have a stroke 3 to 4 years ago without any obvious cause why. Prior EKG from 2021 showed normal sinus rhythm. No significant syncope. No significant hematochezia or melena. REVIEW OF SYSTEMS At the time of my exam: CONSTITUTIONAL: Denies fever or chills. CARDIOVASCULAR: Denies chest pain, shortness of breath, orthopnea, PND or palpitations. RESPIRATORY: Denies cough. GASTROINTESTINAL: Denies abdominal pain, diarrhea, constipation, nausea or vomiting. MUSCULOSKELETAL: Denies myalgias. NEUROLOGIC: Denies numbness, tingling or weakness. ENDOCRINE: Denies fatigue, weight change, polydipsia or polyurina. GENITOURINARY: Denies burning, hematuria or urgency with micturation. HEMATOLOGIC: Denies history of anemia or bleeding. PHYSICAL EXAMINATION Vital signs reviewed. CONSTITUTIONAL: No apparent distress. HEENT: Head is normocephalic. Pupils are equal, round. Sclerae anicteric. Mucous membranes of the mouth are moist. No JVD. No carotid bruit. CHEST EXAMINATION: Lungs are clear to auscultation. No chest wall tenderness is noted on palpation or with deep breathing. HEART EXAMINATION: Irregular rate and rhythm. S1, S2 heard. No murmurs, gallops or rub. ABDOMEN: Soft, nontender. Positive bowel sounds. EXTREMITIES: 2+ peripheral pulses, no lower extremity edema and no calf tenderness. NEUROLOGIC EXAMINATION: Patient is awake, alert and oriented x3. ASSESSMENT Persistent A-fib with mild RVR Dyspnea Hypertension Hyperlipidemia Prior stroke PLAN Patient with relatively asymptomatic A-fib. We discussed management including rate or rhythm control. She is fairly asymptomatic and therefore changed amlodipine to Cardizem. Additionally discussed role of anticoagulation with prior stroke possibly related to her atrial fibrillation. Pradaxa is $60 at [facility] and she states this is affordable and recommended Pradaxa on discharge. Stop Cardizem drip and add oral Cardizem and if heart rates controlled patient stable for discharge home. Follow-up in the office in 1 to 2 weeks. Past Medical History Past Medical History: CVA/TIA, Diabetes Mellitus, Hypertension Additional Past Medical History / Comment(s): CVA 2021; History of Any Multi-Drug Resistant Organisms: None Reported Past Surgical History: No Surgical Hx Reported Past Anesthesia/Blood Transfusion Reactions: No Reported Reaction Past Psychological History: No Psychological Hx Reported Smoking Status: Never smoker Past Alcohol Use History: None Reported Past Drug Use History: None Reported Medications and Allergies Home Medications Medication Instructions Recorded Confirmed Type Aspirin 81 mg PO DAILY 30 Days #30 07/19/21 09/23/24 Rx Atorvastatin [Lipitor] 80 mg PO HS 30 Days #30 tab 07/19/21 09/23/24 Rx amLODIPine [Norvasc] 10 mg PO DAILY 30 Days #30 tab 07/19/21 09/23/24 Rx Alendronate Sodium [Fosamax] 70 mg PO FR 09/23/24 09/23/24 History Multivit-Min/Iron/Folic/Lutein 1 tab PO DAILY 09/23/24 09/23/24 History [Centrum Silver Women Tablet] metFORMIN HCL 500 mg PO BID 09/23/24 09/23/24 History Allergies Allergy/AdvReac Type Severity Reaction Status Date / Time No Known Allergies Allergy Verified 09/23/24 16:15 Physical Exam Vitals: Vital Signs Temp Pulse Pulse Resp BP BP Pulse Ox 09/24/24 11:42 98.6 F 62 16 113/75 98 09/24/24 07:40 98.1 F 68 16 117/73 98 09/24/24 04:20 68 16 119/74 95 09/23/24 23:10 63 16 113/70 95 09/23/24 21:51 98.4 F 74 16 116/79 97 09/23/24 20:41 98.4 F 64 18 115/76 96 09/23/24 18:00 80 14 109/83 09/23/24 17:39 94 18 109/78 96 09/23/24 15:49 98 18 09/23/24 15:32 97.9 F 121 H 19 126/86 97 Intake and Output 09/23/24 09/24/24 09/24/24 22:59 06:59 14:59 Intake Total 120 Balance 120 Intake: Oral 120 Other: Voiding Method Toilet # Voids 1 1 Weight 72.121 kg 72.1 kg Results 09/24/24 06:08 09/24/24 06:08 Cardiac Enzymes 09/23/24 09/23/24 Range/Units 16:06 16:06 AST 29 (14-36) U/L Troponin I <0.012 (0.000-0.034) ng/mL Coagulation 09/23/24 09/23/24 09/24/24 Range/Units 16:06 22:11 06:08 PT 9.9 L (10.0-12.5) sec APTT 22.6 44.5 H 43.7 H (22.0-30.0) sec CBC 09/23/24 09/24/24 Range/Units 16:06 06:08 WBC 7.96 7.43 (4.50-10.00) 10*3/uL RBC 4.60 4.03 L (4.10-5.20) 10*6/uL Hgb 14.6 12.8 (12.0-15.0) g/dL Hct 42.7 37.3 (37.2-46.3) % Plt Count 196 174 (140-440) 10*3/uL Comprehensive Metabolic Panel 09/23/24 09/24/24 Range/Units 16:06 06:08 Sodium 139 137 (137-145) mmol/L Potassium 4.2 4.0 (3.5-5.1) mmol/L Chloride 101 106 (98-107) mmol/L Carbon Dioxide 25 29 (22-30) mmol/L BUN 18 H 14 (7-17) mg/dL Creatinine 0.70 0.66 (0.52-1.04) mg/dL Glucose 122 H 99 (74-99) mg/dL Calcium 9.9 9.0 (8.4-10.2) mg/dL AST 29 (14-36) U/L ALT 29 (4-34) U/L Alkaline Phosphatase 128 H (38-126) U/L Total Protein 8.1 (6.3-8.2) g/dL Albumin 4.7 (3.5-5.0) g/dL Current Medications Generic Name Dose Route Start Last Admin Trade Name Ectorq PRN Reason Stop Dose Admin Aspirin 81 mg 09/24/24 09:00 09/24/24 08:08 Aspirin 81 Mg PO 81 mg DAILY NICHOLE Administration Atorvastatin Calcium 80 mg 09/24/24 21:00 Atorvastatin 80 Mg Tab PO HS NICHOLE Dabigatran 150 mg 09/24/24 13:00 Dabigatran 150 Mg Cap PO BID NICHOLE Protocol Dextrose/Water 25 ml 09/23/24 19:48 Dextrose 50% Syringe 50 Ml IVP PER PROTOCOL PRN Hypoglycemia Protocol Dextrose/Water 50 ml 09/23/24 19:48 Dextrose 50% Syringe 50 Ml IVP PER PROTOCOL PRN Hypoglycemia Protocol Diltiazem HCl 180 mg 09/24/24 13:00 Diltiazem Cd 180 Mg Cap.Er.24h PO DAILY [facility] Sodium Chloride 1,000 mls @ 20 mls/hr 09/23/24 17:30 09/23/24 18:27 Saline 0.9% IV 20 mls/hr .Q24H NICHOLE Administration Insulin Human Lispro 0 unit 09/23/24 21:00 09/24/24 11:29 Insulin Lispro (Humalog) 100 Unit/Ml 10 Ml Vl SQ Not Given ACHS NICHOLE Protocol Naloxone HCl 0.2 mg 09/23/24 17:23 Naloxone 0.4 Mg/Ml 1 Ml Vial IV Q2M PRN Opioid Reversal Alendronate (Fosamax 70 each 09/24/24 09:00 09/24/24 08:07 ) 70mg Tablet PO Not Given FR NICHOLE Pantoprazole Sodium 40 mg 09/24/24 07:30 09/24/24 06:27 Pantoprazole 40 Mg Tablet PO 40 mg [id number] NICHOLE Administration Intake and Output 09/23/24 09/24/24 09/24/24 22:59 06:59 14:59 Intake Total 120 Balance 120 Intake: Oral 120 Other: Voiding Method Toilet # Voids 1 1 Weight 72.121 kg 72.1 kg 09/24/24 06:08 09/24/24 06:08
[2024-09-24 13:11] VITALS: BP 113/75; PULSE 62; RESP 16; TEMP 98.6
--- NOTE | 2024-09-24 13:26 | CA ---
Transthoracic Echo Report Name: Mitali Couch Age: 79 Gender: F : 1945 Exam Date: 09/24/2024 08:16 Exam Location: [facility] Ht (in): 67 Wt (lb): 159 Ordering Physician: David Jhaveri MD Attending/Referring Phys: [id number], Emilio Hand Hose Cutter Ness Arteaga RDCS Procedure CPT: Indications: New onset afib Cardiac Hx: Technical Quality: Good Contrast 1: Total Dose (mL): Contrast 2: Total Dose (mL): MEASUREMENTS (Male / Female) Normal Values 2D ECHO LV Diastolic Diameter PLAX 4.5 cm 4.2 - 5.9 / 3.9 - 5.3 cm LV Systolic Diameter PLAX 3.8 cm IVS Diastolic Thickness 1.0 cm 0.6 - 1.0 / 0.6 - 0.9 cm LVPW Diastolic Thickness 1.0 cm 0.6 - 1.0 / 0.6 - 0.9 cm LV Relative Wall Thickness 0.4 LVOT Diameter 1.8 cm LV Diastolic Volume MOD BP 122.7 cm??? 67 - 155 / 56 - 104 cm??? LV Systolic Volume MOD BP 66.5 cm??? 22 - 58 / 19 - 49 cm??? LV Ejection Fraction MOD BP 45.8 % >= 55 % LV Cardiac Index MOD BP 2180.3 cm???/min???m??? LV Diastolic Volume MOD 4C 122.4 cm??? LV Systolic Volume MOD 4C 65.4 cm??? LV Ejection Fraction MOD 4C 46.6 % LV Cardiac Index MOD 4C 2210.1 cm???/min???m??? LV Diastolic Length 4C 8.1 cm LV Systolic Length 4C 6.9 cm LV Diastolic Volume MOD 2C 120.0 cm??? LV Systolic Volume MOD 2C 67.5 cm??? LV Ejection Fraction MOD 2C 43.8 % LV Cardiac Index MOD 2C 2038.6 cm???/min???m??? LV Diastolic Length 2C 7.9 cm LV Systolic Length 2C 7.0 cm LA Volume 109.3 cm??? 18 - 58 / 22 - 52 cm??? LA Volume Index 58.9 cm???/m??? 16 - 28 cm???/m??? Ascending Aorta Diameter 3.2 cm DOPPLER AV Peak Velocity 170.7 cm/s AV Peak Gradient 11.7 mmHg AV Mean Velocity 127.7 cm/s AV Mean Gradient 7.2 mmHg AV Velocity Time Integral 32.2 cm LVOT Peak Velocity 106.9 cm/s LVOT Peak Gradient 4.6 mmHg LVOT Velocity Time Integral 20.1 cm LVOT Stroke Volume 49.2 cm??? LVOT Stroke Volume Index 26.8 ml/m??? LVOT Cardiac Index 1907.7 cm???/min???m??? AV Area Cont Eq vti 1.5 cm??? AV Area Cont Eq pk 1.5 cm??? TR Peak Velocity 241.1 cm/s TR Peak Gradient 23.3 mmHg Right Atrial Pressure 5.0 mmHg Pulmonary Artery Systolic Pressu 28.3 mmHg Right Ventricular Systolic Press 28.3 mmHg PV Peak Velocity 99.9 cm/s PV Peak Gradient 4.0 mmHg FINDINGS Left Ventricle Left ventricular ejection fraction is estimated at 40-45 %. Mildly increased septal wall thickness. Moderately increased left ventricular diastolic volume. Moderately increased left ventricular systolic volume. Mildly decreased left ventricular ejection fraction. Global left ventricular hypokinesis. Abnormal left ventricular diastolic filling pattern. Right Ventricle Mild right ventricular dilatation with borderline reduced function. Right ventricular systolic pressure within normal limits. Right Atrium Severe right atrial dilatation. Left Atrium Severely increased left atrial volume. Mildly increased left atrial area. Mitral Valve Mitral valve thickened. No evidence for mitral valve prolapse. No mitral stenosis. [id number] mitral regurgitation. Aortic Valve Trileaflet aortic valve. Diffuse thickening (sclerosis) of the aortic valve cusps without reduced excursion. No aortic valve stenosis or regurgitation. Tricuspid Valve Structurally normal tricuspid valve. Annular dilatation of the tricuspid valve. No tricuspid stenosis. [id number] tricuspid regurgitation. Pulmonic Valve Pulmonic valve not well visualized. No pulmonic stenosis. Trace pulmonic regurgitation. Pericardium No pericardial effusion. Aorta Normal size aortic root and proximal ascending aorta. CONCLUSIONS LVEF 40 to 45% Globally reduced LV systolic function Indeterminate diastolic function because of irregular heartbeat Severe biatrial dilatation Moderate mitral regurgitation Moderate tricuspid regurgitation Sclerotic aortic valve Mild RV dilatation with RVSP estimated at 28 mmHg Previewed by: Dr Gaurav Kilpatrick (Electronically Signed) Final Date: 24 September 2024 13:25
[2024-09-24] MEDS: DILTIAZEM CD 180 MG CAP.ER.24H PO SCH (13:59)
[2024-09-24] MEDS: DABIGATRAN 150 MG CAP PO SCH (14:48)
--- NOTE | 2024-09-24 15:26 | P.DS ---
Providers Date of admission: 09/23/24 17:25 Expected date of discharge: 09/24/24 Attending physician: Nora Kirk MD Consults: 09/23/24 17:23 Consult Physician Routine Consulting Provider: Gaurav Kilpatrick Consult Reason/Comments: new onset afib Do you want consulting provider notified?: Yes Primary care physician: [facility] Course: 79 year old M with PMH of osteoporosis, HTN, DM, HLD presents to the ED from her PCP office for new onset A-Fib. She denies any complaints. In the ED she underwent extensive evaluation. BP 121/86, HR 121, RR 19, T 97.9F, 97% on RA. CBC, Coag panel, CMP significant for PT 9.9, APTT 44.5, BUN 18, glu 122, alk phos 128. Mag 1.7. Trop < 0.012. TSH 5.49, FT4 1.29. EKG AFib with RVR rate of 112. CXR no acute process. Started on Cardizem and Heparin drip and admitted for Cardiology evaluation. 09/24 Patient was seen and examined. No complaints. Maintained on Cardizem drip at 5 mg/hr. Heparin drip at 12 units/kg/hr. CBC and BMP significant for RBC 4.03, glu 111. APTT 43.7. Discussed with Dr. Self, cleared for discharge. Echo shows EF 40-45% mod MR/TR. Started on Cardizem 180 mg PO QD. Prescription for Eliquis 5 mg PO BID sent to pharmacy with coupon. Discharge Plan: Follow up with PCP within 1-2 days of discharge. Follow up with Cardiology within 1 week of discharge. Prescription for Cardizem 180 mg PO QD and Eliquis 5 mg PO BID sent to pharmacy with coupon. General: toxic, no distress, appears older than stated age Derm: warm, dry Head: atraumatic, normocephalic, symmetric Mouth: no lip lesion, mucus membranes moist Cardiovascular: S1 S2 irreg. systolic murmur. Lungs: Clear to auscultation bilaterally, no accessory muscle use Ext: no gross muscle atrophy, no edema, no contractures Neuro: No focal neurologic deficits. Psych: Alert and oriented. Discharge Diagnosis: New onset A-Fib RVR Subclinical hypothyroidism Osteoporosis HTN DM HLD This complex discharge took 35 minutes to complete. Patient Condition at Discharge: Stable Plan - Discharge Summary Discharge Rx Participant: No New Discharge Prescriptions: New Diltiazem Cd [Cardizem CD] 180 mg PO DAILY #30 cap Apixaban [Eliquis] 5 mg PO BID #60 tab Continue Aspirin 81 mg PO DAILY 30 Days #30 Atorvastatin [Lipitor] 80 mg PO HS 30 Days #30 tab metFORMIN HCL 500 mg PO BID Alendronate Sodium [Fosamax] 70 mg PO FR Multivit-Min/Iron/Folic/Lutein [Centrum Silver Women Tablet] 1 tab PO DAILY Discontinued amLODIPine [Norvasc] 10 mg PO DAILY 30 Days #30 tab Discharge Medication List Aspirin 81 mg PO DAILY 30 Days #30 07/19/21 [Rx] Atorvastatin [Lipitor] 80 mg PO HS 30 Days #30 tab 07/19/21 [Rx] Alendronate Sodium [Fosamax] 70 mg PO FR 09/23/24 [History] Multivit-Min/Iron/Folic/Lutein [Centrum Silver Women Tablet] 1 tab PO DAILY 09/23/24 [History] metFORMIN HCL 500 mg PO BID 09/23/24 [History] Apixaban [Eliquis] 5 mg PO BID #60 tab 09/24/24 [Rx] Diltiazem Cd [Cardizem CD] 180 mg PO DAILY #30 cap 09/24/24 [Rx] Follow up Appointment(s)/Referral(s): Mauricio Self DO [STAFF PHYSICIAN] - 1 Week None,Stated [REFERRING] - 1-2 days Discharge Disposition: HOME SELF-CARE
--- NOTE | 2024-09-24 20:47 | P.HPIM ---
History of Present Illness H&P Date: 09/23/24 Chief Complaint: New onset Atrial fibrillation Patient is a 79 year old female with past medical history of hypertension presented to the ED with new onset A-fib. Patient was seen by her primary care physician earlier for a 6-month follow-up visit. At that visit the patient was found to be in A-fib. She was instructed to come to the ED to be admitted for further evaluation by cardiology. Patient denies any chest pain, palpitations, dizziness, fainting, lightheadedness. Patient states that she lives alone and is able to manage her daily activities on her own. She is also very active and walks a lot. She denies having any issues with her thyroid in the past. Additionally, patient states having chronically edematous lower extremities, and she states that her siblings also had it. She uses compression socks at home but states that doesn't help a lot. Denies being diagnosed with heart failure. Echocardiogram done in July 2021 showed moderate concentric left ventricular hypertrophy with EF between 55 to 60%, RV moderately enlarged, LA moderately dilated, moderate MR, mild to moderate TR, borderline pulmonary artery hypertension. Carotid Doppler study done in July 2021 showed less than 50% stenosis of the carotid bifurcation bilaterally. Denies fever, chills, shortness of breath, cough, chest pain, palpitations, abdominal pain, nausea, vomiting, hematuria, dysuria, hematochezia, melena, headache, slurred speech, numbness, tingling, dizziness, lightheadedness, blurred vision, double vision. ED documentation reviewed. In the ED patient was treated with Cardizem drip, heparin drip, 0.9 normal saline. Vitals on admission T 97.9 F, AR 141 bpm, RR 19, BP 126/86, oxygen saturation 97% on room air EKG independently interpreted as atrial fibrillation with rapid ventricular response, rate 105 bpm, QTc 76 ms Chest x-ray shows no acute cardiopulmonary disease/process Labs on admission show WBC 7.96, hemoglobin 14.6, platelet count 196, INR 0.9, sodium 139, potassium 4.2, anion gap 13, BUN 18, creatinine 0.7 ALP 128, troponin I <0.012 Patient admitted to internal medicine service Review of systems: Pertinent positives and negatives as discussed in HPI, a complete review of systems was performed and all other systems are negative. Physical examination: Vital signs reviewed General: nontoxic, no distress, appears at stated age Derm: warm, dry, intact Head: atraumatic, normocephalic, symmetric Eyes: EOMI, anicteric sclera Mouth: no lip lesion, mucus membranes moist Cardiovascular: irregularly irregular Lungs: CTA bilateral, no rhonchi, no rales, no accessory muscle use Abdominal: soft, non-tender to palpation Extremities: non pitting edema bilaterally, No cyanosis, clubbing Neuro: Alert, Oriented, Gross neurological examination did not reveal any focal deficits. Psych: well appearing, appropriate affect Assessment/Plan: Patient is a 79 year old female with past medical history of hypertension presented to the ED with new onset A-fib. Active: #. New onset atrial fibrillation with rapid ventricular rate Pulse rate on admission 141 bpm EKG independently interpreted as atrial fibrillation with rapid ventricular response, rate 105 bpm, QTc 76 ms Echocardiogram done in July 2021 showed moderate concentric left ventricular hypertrophy with EF between 55 to 60%, RV moderately enlarged, LA moderately dilated, moderate MR, mild to moderate TR, borderline pulmonary artery hypertension Carotid Doppler study done in July 2021 showed less than 50% stenosis of the carotid bifurcation bilaterally [id number] score of 7 Continue Cardizem drip 5 mg/h Heparin drip started in the ED Start Eliquis 5 mg PO BID Obtain TSH Continue telemetry monitoring Cardiology consulted Chronic: #. Hypertension #. History of subacute ischemic stroke #. Type 2 diabetes mellitus #. Osteoporosis Continue alendronate 70 mg p.o., amlodipine 10 mg PO daily, aspirin 80 mg p.o. daily, atorvastatin 80 mg p.o. at bedtime, insulin sliding scale F: 0.9 normal saline 20 mL/h E: Replete as required N: Heart healthy diet A: Ambulatory DVT prophylaxis: Eliquis 5 mg PO BID and SCD GI prophylaxis: Pantoprazole 40 mg p.o. daily The patient is admitted with an anticipated more than 2 midnight stay for e valuation of new onset A-fib CODE STATUS: Full code Discussed with: Patient Anticipated discharge place: Pending clinical course Dictation was produced using [employer] dictation software. please excuse any grammatical, word or spelling errors. Ruddy Ortiz MD PGY-1 IM I have seen and evaluated the patient today. I Discussed the case with the resident and agree with the resident's findings I edited the assessment and plan as necessary as documented in the resident's note. Past Medical History Past Medical History: Hypertension History of Any Multi-Drug Resistant Organisms: None Reported Past Surgical History: No Surgical Hx Reported Past Psychological History: No Psychological Hx Reported Smoking Status: Never smoker Past Alcohol Use History: None Reported Past Drug Use History: None Reported Medications and Allergies Home Medications Medication Instructions Recorded Confirmed Type Aspirin 81 mg PO DAILY 30 Days #30 07/19/21 09/23/24 Rx Atorvastatin [Lipitor] 80 mg PO HS 30 Days #30 tab 07/19/21 09/23/24 Rx Alendronate Sodium [Fosamax] 70 mg PO FR 09/23/24 09/23/24 History Multivit-Min/Iron/Folic/Lutein 1 tab PO DAILY 09/23/24 09/23/24 History [Centrum Silver Women Tablet] metFORMIN HCL 500 mg PO BID 09/23/24 09/23/24 History Apixaban [Eliquis] 5 mg PO BID #60 tab 09/24/24 Rx Diltiazem Cd [Cardizem CD] 180 mg PO DAILY #30 cap 09/24/24 Rx Allergies Allergy/AdvReac Type Severity Reaction Status Date / Time No Known Allergies Allergy Verified 09/23/24 16:15 Physical Exam Vitals: Vital Signs Temp Pulse Resp BP Pulse Ox 09/23/24 18:00 80 14 109/83 09/23/24 17:39 94 18 109/78 96 09/23/24 15:49 98 18 09/23/24 15:32 97.9 F 121 H 19 126/86 97 Intake and Output 09/23/24 09/23/24 09/23/24 06:59 14:59 22:59 Other: Weight 72.121 kg Results CBC & Chem 7: 09/24/24 06:08 09/24/24 06:08 Labs: Abnormal Lab Results - Last 24 Hours (Table) 09/23/24 09/23/24 Range/Units 16:06 16:06 PT 9.9 L (10.0-12.5) sec BUN 18 H (7-17) mg/dL Glucose 122 H (74-99) mg/dL Alkaline Phosphatase 128 H (38-126) U/L
[2024-09-24] MEDS ORDERED: ATORVASTATIN 80 MG TAB PO SCH (21:00)
== END 2024-09-24 16:23 | disposition home or self-care (01) | DRG 310 ==
LOC: EC 15:31 → 3SCARD 17:25
PROVIDERS: ADMIT Family Medicine; ATTEND Family Medicine
DX: I48.19 Other persistent atrial fibrillation (principal); I27.21 Secondary pulmonary arterial hypertension; E11.9 Type 2 diabetes mellitus without complications; I10 Essential (primary) hypertension; E03.8 Other specified hypothyroidism; I65.29 Occlusion and stenosis of unspecified carotid artery; I08.1 Rheumatic disorders of both mitral and tricuspid valves; E78.5 Hyperlipidemia, unspecified; M81.0 Age-related osteoporosis without current pathological fracture; Z79.01 Long term (current) use of anticoagulants; Z79.82 Long term (current) use of aspirin; Z79.83 Long term (current) use of bisphosphonates; Z79.84 Long term (current) use of oral hypoglycemic drugs; Z79.899 Other long term (current) drug therapy; Z86.73 Personal history of transient ischemic attack (TIA), and cerebral infarction without residual deficits
CPT/HCPCS: 36415; 71046; 80048; 80053; 83036; 83735; 84439; 84443; 84484; 85025; 85027; 85610; 85730; 93005; 93306; 96374; 96375; 99291

== ENCOUNTER 2024-12-26 07:58 | Emergency (ER) | payer MEDICARE ==
[2024-12-26 08:04] VITALS: TEMP 97.9
[2024-12-26] MEDS: SODIUM CHLORIDE 0.9% 1,000 ML IV STA (08:35)
[2024-12-26] MEDS: ASPIRIN 81 MG PO STA (08:35)
[2024-12-26 08:41] LABS: Basophils # (A) 0.10 10*3/uL (0.00-0.10); Basophils % (A) 1.1 %; Eosinophils # (A) 0.18 10*3/uL (0.04-0.35); Eosinophils % (A) 1.9 %; HCT 41.3 % (37.2-46.3); HGB 14.0 g/dL (12.0-15.0); Lymphocytes # (A) 2.01 10*3/uL (0.90-5.00); Lymphocytes % (A) 21.2 %; MCH 31.4 pg (27.0-32.0); MCHC 33.9 g/dL (32.0-37.0); MCV 92.6 fL (80.0-97.0); Monocytes # (A) 0.61 10*3/uL (0.20-1.00); Monocytes % (A) 6.4 %; Neutrophils # (A) 6.54 10*3/uL (1.80-7.70); Neutrophils % (A) 69.1 %; Platelet Count 208 10*3/uL (140-440); RBC 4.46 10*6/uL (4.10-5.20); RDW 13.0 % (11.5-14.5); WBC 9.47 10*3/uL (4.50-10.00)
--- NOTE | 2024-12-26 08:46 | XR ---
EXAMINATION TYPE: XR chest 2V DATE OF EXAM: 12/26/2024 8:43 AM COMPARISON: Chest radiographs from 09/23/2024 TECHNIQUE: XR chest 2V Frontal and lateral views of the chest. CLINICAL INDICATION:Female, 79 years old with history of Chest Pain; FINDINGS: Lungs/Pleura: There is no evidence of pleural effusion, focal consolidation, or pneumothorax. Pulmonary vascularity: Unremarkable. Heart/mediastinum: Cardiomediastinal silhouette is enlarged and stable. Musculoskeletal: Multiple level degenerative disc disease changes seen throughout the spine. IMPRESSION: No acute cardiopulmonary disease/process. [facility], , 12/26/2024 8:44 AM
[2024-12-26 08:51] LABS: INR 1.2 (<1.2); Partial Thromboplastin Time 40.1 sec (22.0-30.0); Prothrombin Time 13.1 sec (10.0-12.5)
[2024-12-26 09:06] LABS: ALT 22 U/L (4-34); AST 27 U/L (14-36); African American GFR (CKD) >90 (>60 ml/min/1.73 sqM); Albumin 4.5 g/dL (3.5-5.0); Alkaline Phosphatase 128 U/L (38-126); Anion Gap 9 mmol/L; Blood Urea Nitrogen 13 mg/dL (7-17); Calcium 9.6 mg/dL (8.4-10.2); Carbon Dioxide 25 mmol/L (22-30); Chloride 105 mmol/L (98-107); Glucose 118 mg/dL (74-99); Magnesium 1.7 mg/dL (1.6-2.3); Non-African American GFR(CKD) 79 (>60 ml/min/1.73 sqM); Potassium 4.5 mmol/L (3.5-5.1); Sodium 139 mmol/L (137-145); Total Protein 7.3 g/dL (6.3-8.2)
[2024-12-26 09:19] LABS: Bilirubin,Urine Negative (Negative); Blood,Urine Negative (Negative); Color,Urine Colorless; Glucose,Urine (UA) Negative (Negative); Ketones,Urine Negative (Negative); Leukocyte Esterase,Urine Negative (Negative); Nitrite,Urine Negative (Negative); PH, Urine 7.0 (5.0-8.0); Protein,Urine Negative (Negative); Specific Gravity,Urine 1.004 (1.001-1.035); Urobilinogen,Urine <2.0 mg/dL (<2.0)
--- NOTE | 2024-12-26 12:47 | ED ---
General Adult HPI - General Chief complaint: Chest Pain Stated complaint: Chest Pain Time Seen by Provider: 12/26/24 08:15 Source: patient, RN notes reviewed, old records reviewed Mode of arrival: ambulatory Limitations: no limitations - History of Present Illness Initial comments: 79-year-old female presents emergency department complaint of chest pain. Has a history of atrial fibrillation, hypertension. States that since midnight she has been having intermittent chest discomfort. States it is a sharp sensation that is right on top of the center part of her sternum. Lasts a few seconds and goes away. This is occurred multiple times since midnight. Is not persistent. Does not radiate. Denies nausea or vomiting or diaphoresis with it. Denies shortness of breath, lightheadedness with it. Has no other acute complaints. Currently has no symptoms. Last had symptoms on the way to the hospital. Presents for further evaluation at this time. Patient is on Pradaxa in addition to rate control agents. Took all of her home medications prior to arrival. Follows up with Dr. Self. No history of CAD or cardiac stents. - Related Data Home Medications Medication Instructions Recorded Confirmed Alendronate Sodium [Fosamax] 70 mg PO FR 09/23/24 12/26/24 metFORMIN HCL 500 mg PO BID 09/23/24 12/26/24 Dabigatran [Pradaxa] 150 mg PO BID 12/26/24 12/26/24 Previous Rx's Medication Instructions Recorded Aspirin 81 mg PO DAILY 30 Days #30 07/19/21 Atorvastatin [Lipitor] 80 mg PO HS 30 Days #30 tab 07/19/21 Diltiazem Cd [Cardizem CD] 180 mg PO DAILY #30 cap 09/24/24 Allergies Allergy/AdvReac Type Severity Reaction Status Date / Time No Known Allergies Allergy Verified 12/26/24 09:25 Review of Systems ROS Statement: Those systems with pertinent positive or pertinent negative responses have been documented in the HPI. Review of Systems: CONST: Denies fever EYES: Denies blurry vision ENT: Denies nasal congestion C/V: Denies Chest pain RESP: Denies shortness of breath GI: Denies abdominal pain : Denies dysuria SKIN: Denies rash. MSK: Denies joint pain. NEURO: Denies headache ROS Other: All systems not noted in ROS Statement are negative. Past Medical History Past Medical History: Atrial Fibrillation, Hypertension Additional Past Medical History / Comment(s): CVA 2021; History of Any Multi-Drug Resistant Organisms: None Reported Past Surgical History: No Surgical Hx Reported Past Anesthesia/Blood Transfusion Reactions: No Reported Reaction Past Psychological History: No Psychological Hx Reported Smoking Status: Never smoker Past Alcohol Use History: None Reported Past Drug Use History: None Reported General Exam - General Exam Comments Initial Comments: General: Appears in no acute distress. HEAD: Normal with no signs of head trauma. EYES: PERRLA, EOMI, conjunctiva normal, no discharge. ENT: Hearing grossly intact, normal oropharynx. RESPIRATORY: Clear breath sounds bilaterally. No wheezes, rales, or rhonchi. C/V: Regular rate and rhythm. S1 and S2 auscultated, no edema, peripheral pulses 2+ and intact throughout ABD: Abd is soft, nontender, nondistended EXT: Normal range of motion, no obvious deformity SKIN: No rashes or lesions observed on exposed skin. NEURO: Alert and oriented x 4. Limitations: no limitations Course Vital Signs 12/26/24 12/26/24 12/26/24 08:00 09:58 11:00 Temperature 97.9 F Pulse Rate 119 H 77 75 Respiratory 18 16 18 Rate Blood Pressure 155/80 128/85 119/90 O2 Sat by Pulse 97 97 99 Oximetry 12/26/24 12:55 Temperature Pulse Rate 70 Respiratory 14 Rate Blood Pressure 123/76 O2 Sat by Pulse 97 Oximetry Medical Decision Making - Medical Decision Making Was pt. sent in by a medical professional or institution (, PA, ENDOSCOPY TECHNICIAN, urgent care, hospital, or assisted...) When possible be specific @ -No Did you speak to anyone other than the patient for history (EMS, parent, family, police, friend...)? What history was obtained from this source @ -No Did you review nursing and triage notes (agree or disagree)? Why? @ -I reviewed and agree with nursing and triage notes Were old charts reviewed (outside hosp., previous admission, EMS record, old EKG, old radiological studies, urgent care reports/EKG's, assisted records)? Report findings @ -Reviewed prior EKG from September 2024 which did not reveal left bundle branch block. Differential Diagnosis (chest pain, altered mental status, abdominal pain women, abdominal pain men, vaginal bleeding, weakness, fever, dyspnea, syncope, headache, dizziness, GI bleed, back pain, seizure, CVA, palpatations, mental health, musculoskeletal)? @ -Differential Chest Pain: Stable Angina, Unstable Angina, STEMI, NSTEMI Aortic Dissection, Pneumothorax, Musculoskeletal, Esophageal Spasm GERD, Cholecystitis, Pancreatitis, Zoster, this is not meant to be an all-inclusive list. EKG interpreted by me (3pts min.). @ -As above X-rays interpreted by me (1pt min.). @ -Chest x-ray reveals no obvious acute cardiopulmonary process. CT interpreted by me (1pt min.). @ -None done U/S interpreted by me (1pt. min.). @ -None done What testing was considered but not performed or refused? (CT, X-rays, U/S, labs)? Why? @ -None What meds were considered but not given or refused? Why? @ -None Did you discuss the management of the patient with other professionals (professionals i.e. , PA, ENDOSCOPY TECHNICIAN, lab, RT, psych nurse, social worker psychiatric, belt sander stone, teacher, admitting officer, case specialist)? Give summary @ -Spoke with Dr. Dey of cardiology. We discussed the case, and as there is an atypical nature of the chest pain and patient would like to go home if possible and she has had no symptoms he believes at the left bundle branch block is likely a rate dependent left bundle branch block and recommended a second troponin if that was cleared she can be discharged home with close follow-up with Dr. Self. Was smoking cessation discussed for >3mins.? @ -No Was critical care preformed (if so, how long)? @ -No Were there social determinants of health that impacted care today? How? (Homelessness, low income, unemployed, alcoholism, drug addiction, transportation, low edu. Level, literacy, decrease access to med. care, longterm, rehab)? @ -No Was there de-escalation of care discussed even if they declined (Discuss DNR or withdrawal of care, Hospice)? DNR status @ -No What co-morbidities impacted this encounter? (DM, HTN, Smoking, COPD, CAD, Cancer, CVA, ARF, Chemo, Hep., AIDS, mental health diagnosis, sleep apnea, morbid obesity)? @ -Atrial fibrillation Was patient admitted / discharged? Hospital course, mention meds given and route, prescriptions, significant lab abnormalities, going to OR and other pertinent info. @ -Patient presents with chest pain. Currently has no chest pain. It is atypical in nature as it is fleeting and a somewhat sharp sensation to the anterior sternum with no radiation or other concerning symptoms of ACS. She currently has no symptoms at this time. Will obtain cardiac workup. She was in agreement this plan. She is given 4 baby aspirin, as well as IV fluids. Vitals within acceptable limits. EKG shows no signs of acute ischemia however there is a new onset left bundle branch block. Laboratory studies all within acceptable limits including undetectable troponin. On reevaluation, patient remains asymptomatic. I discussed admission versus discharge. She would like to go home if possible. It is atypical chest pain. I did contact the on-call mail processing equipment mechanic Dr. Dey regarding the new onset left bundle branch block and he believes it is likely rate dependent considering her history of A-fib. Recommended follow-up with Dr. Self and patient can be discharged as long as second troponin is undetectable and remains asymptomatic. Patient was in agreement this plan. 3-hour troponin remains undetectable. Repeat EKG shows no signs of acute ischemia. It is unchanged. I update the patient. She remains asymptomatic. She will be discharged home at this time with Dr. Self. Patient was in agreement this plan. I instructed the patient to follow up with their PCP in the next 1-3 days. I explained that the patient should return to the emergency department if they experience any worsening symptoms. Strict return precautions were discussed with the patient. The patient expressed understanding of these instructions. I a nswered all questions that the patient had. The patient was discharged home in good condition with their prescriptions and follow up information. Undiagnosed new problem with uncertain prognosis? @ -No Drug Therapy requiring intensive monitoring for toxicity (Heparin, Nitro, Insulin, Cardizem)? @ -No Were any procedures done? @ -No Diagnosis/symptom? @ -Atypical chest pain, left bundle branch block Acute, or Chronic, or Acute on Chronic? @ -Acute Uncomplicated (without systemic symptoms) or Complicated (systemic symptoms)? @ -Uncomplicated Side effects of treatment? @ -No Exacerbation, Progression, or Severe Exacerbation? @ -No Poses a threat to life or bodily function? How? (Chest pain, [place], [place], pneumonia, PE, COPD, DKA, ARF, appy, cholecystitis, CVA, Diverticulitis, Homicidal, Cain icidal, threat to staff... and all critical care pts) @ -Unlikely at this time - Lab Data Result diagrams: 12/26/24 08:32 12/26/24 08:32 Lab Results 12/26/24 12/26/24 12/26/24 Range/Units 08:32 08:32 08:32 WBC 9.47 (4.50-10.00) 10*3/uL RBC 4.46 (4.10-5.20) 10*6/uL Hgb 14.0 (12.0-15.0) g/dL Hct 41.3 (37.2-46.3) % MCV 92.6 (80.0-97.0) fL MCH 31.4 (27.0-32.0) pg MCHC 33.9 (32.0-37.0) g/dL Plt Count 208 (140-440) 10*3/uL MPV 10.9 (9.5-12.2) fL Immature Gran % (Auto) 0.3 % Neutrophils % 69.1 % Lymphocytes % 21.2 % Monocytes % 6.4 % Eosinophils % 1.9 % Basophils % 1.1 % Immature Gran # 0.03 (0.00-0.04) 10*3/uL Neutrophils # 6.54 (1.80-7.70) 10*3/uL Lymphocytes # 2.01 (0.90-5.00) 10*3/uL Monocytes # 0.61 (0.20-1.00) 10*3/uL Eosinophils # 0.18 (0.04-0.35) 10*3/uL Basophils # 0.10 (0.00-0.10) 10*3/uL PT 13.1 H (10.0-12.5) sec INR 1.2 H (<1.2) APTT 40.1 H (22.0-30.0) sec Sodium 139 (137-145) mmol/L Potassium 4.5 (3.5-5.1) mmol/L Chloride 105 (98-107) mmol/L Carbon Dioxide 25 (22-30) mmol/L Anion Gap 9 mmol/L BUN 13 (7-17) mg/dL Creatinine 0.74 (0.52-1.04) mg/dL Est GFR (CKD-EPI)AfAm >90 (>60 ml/min/1.73 sqM) Est GFR (CKD-EPI)NonAf 79 (>60 ml/min/1.73 sqM) Glucose 118 H (74-99) mg/dL Calcium 9.6 (8.4-10.2) mg/dL Magnesium 1.7 (1.6-2.3) mg/dL Total Bilirubin 0.8 (0.2-1.3) mg/dL AST 27 (14-36) U/L ALT 22 (4-34) U/L Alkaline Phosphatase 128 H (38-126) U/L Troponin I (0.000-0.034) ng/mL Total Protein 7.3 (6.3-8.2) g/dL Albumin 4.5 (3.5-5.0) g/dL Urine Color Urine Appearance (Clear) Urine pH (5.0-8.0) Ur Specific [place] (1.001-1.035) Urine Protein (Negative) Urine Glucose (UA) (Negative) Urine Ketones (Negative) Urine Blood (Negative) Urine Nitrite (Negative) Urine Bilirubin (Negative) Urine Urobilinogen (<2.0) mg/dL Ur Leukocyte Esterase (Negative) 12/26/24 12/26/24 12/26/24 Range/Units 08:32 09:14 11:27 WBC (4.50-10.00) 10*3/uL RBC (4.10-5.20) 10*6/uL Hgb (12.0-15.0) g/dL Hct (37.2-46.3) % MCV (80.0-97.0) fL MCH (27.0-32.0) pg MCHC (32.0-37.0) g/dL Plt Count (140-440) 10*3/uL MPV (9.5-12.2) fL Immature Gran % (Auto) % Neutrophils % % Lymphocytes % % Monocytes % % Eosinophils % % Basophils % % Immature Gran # (0.00-0.04) 10*3/uL Neutrophils # (1.80-7.70) 10*3/uL Lymphocytes # (0.90-5.00) 10*3/uL Monocytes # (0.20-1.00) 10*3/uL Eosinophils # (0.04-0.35) 10*3/uL Basophils # (0.00-0.10) 10*3/uL PT (10.0-12.5) sec INR (<1.2) APTT (22.0-30.0) sec Sodium (137-145) mmol/L Potassium (3.5-5.1) mmol/L Chloride (98-107) mmol/L Carbon Dioxide (22-30) mmol/L Anion Gap mmol/L BUN (7-17) mg/dL Creatinine (0.52-1.04) mg/dL Est GFR (CKD-EPI)AfAm (>60 ml/min/1.73 sqM) Est GFR (CKD-EPI)NonAf (>60 ml/min/1.73 sqM) Glucose (74-99) mg/dL Calcium (8.4-10.2) mg/dL Magnesium (1.6-2.3) mg/dL Total Bilirubin (0.2-1.3) mg/dL AST (14-36) U/L ALT (4-34) U/L Alkaline Phosphatase (38-126) U/L Troponin I <0.012 <0.012 (0.000-0.034) ng/mL Total Protein (6.3-8.2) g/dL Albumin (3.5-5.0) g/dL Urine Color Colorless Urine Appearance Clear (Clear) Urine pH 7.0 (5.0-8.0) Ur Specific [place] 1.004 (1.001-1.035) Urine Protein Negative (Negative) Urine Glucose (UA) Negative (Negative) Urine Ketones Negative (Negative) Urine Blood Negative (Negative) Urine Nitrite Negative (Negative) Urine Bilirubin Negative (Negative) Urine Urobilinogen <2.0 (<2.0) mg/dL Ur Leukocyte Esterase Negative (Negative) - EKG Data -: EKG Interpreted by Me EKG Comments: 12-lead Electrocardiogram Interpretation Note EKG was reviewed and interpreted by myself. 12-lead ECG performed at 0812 is interpreted by me as revealing A-fib with RVR at a rate of 102 beats per minute. Left axis deviation. Left bundle branch block present. QRS durations 146 ms. QTc is 419 ms.. There were no ST or T wave abnormalities to suggest myocardial ischemia or injury. R wave progression across the precordium was satisfactory. By my interpretation this EKG is non-diagnostic for acute ischemia. This does appear to be a new left bundle branch block. 12-lead Electrocardiogram Interpretation Note EKG was reviewed and interpreted by myself. 12-lead ECG performed at 1139 is interpreted by me as revealing atrial fibrillation at a rate of 72 beats per minute. Left axis deviation. Left bundle branch block morphology present. QRS durations 160 ms, QTc is 464 ms.. There were no ST or T wave abnormalities to suggest myocardial ischemia or injury. R wave progression across the precordium was satisfactory. By my interpretation this EKG is non-diagnostic for acute ischemia. Disposition Clinical Impression: Atypical chest pain, Left bundle branch block Disposition: HOME SELF-CARE Condition: Good Instructions (If sedation given, give patient instructions): Chest Pain (ED) Additional Instructions: Return to the ER for any worsening symptoms.Follow-up with Dr. Self in the next 1 to 3 days. Is patient prescribed a controlled substance at d/c from ED?: No Referrals: Antonio De Los Santos MD [Primary Care Provider] - 1-2 days Time of Disposition: 12:45
[2024-12-26 12:56] VITALS: BP 123/76; PULSE 70; RESP 14
[2024-12-26] MEDS ORDERED: metFORMIN 500 MG TAB PO SCH (17:30)
[2024-12-26] MEDS ORDERED: ATORVASTATIN 80 MG TAB PO SCH (21:00)
[2024-12-26] MEDS ORDERED: DABIGATRAN 150 MG CAP PO SCH (21:00)
[2024-12-27] MEDS ORDERED: DILTIAZEM CD 180 MG CAP.ER.24H PO SCH (09:00)
[2024-12-27] MEDS ORDERED: ASPIRIN 81 MG PO SCH (09:00)
[2024-12-31] MEDS ORDERED: NON FORMULARY DRUG (Alendronate Sodium [Fosamax] 70 MG Tablet) PO SCH (09:36)
== END 2024-12-26 12:58 | disposition home or self-care (01) ==
LOC: EC 07:58
DX: R07.89 Other chest pain (principal); I44.7 Left bundle-branch block, unspecified; I10 Essential (primary) hypertension; I48.91 Unspecified atrial fibrillation; Z79.01 Long term (current) use of anticoagulants
CPT/HCPCS: 36415; 71046; 80053; 81003; 83735; 84484; 85025; 85610; 85730; 93005; 96360; 99285